=== PATIENT | female | born 1935 | race Caucasian/White ===

== ENCOUNTER → 2016-07-05 | Outpatient (CLI) | payer OTHER, BC | LOC: BMCIMAGING 08:34 | DX: Z12.31 Encounter for screening mammogram for malignant neoplasm of breast (principal) | CPT/HCPCS: G0202 ==

== ENCOUNTER → 2017-02-08 | Outpatient (CLI) | payer OTHER, BC | LOC: FLAB 10:50 | PROVIDERS: ATTEND Internal Medicine Nephrology | DX: I50.22 Chronic systolic (congestive) heart failure (principal) ==

== ENCOUNTER → 2017-02-23 | Outpatient (CLI) | payer OTHER, BC | LOC: BMCIMAGING 11:23 | PROVIDERS: ATTEND Internal Medicine | DX: I50.9 Heart failure, unspecified (principal); J90 Pleural effusion, not elsewhere classified; R91.8 Other nonspecific abnormal finding of lung field ==

== ENCOUNTER 2017-04-21 10:08 | Inpatient (IN) | payer OTHER, BC ==
[2017-04-21] MEDS ORDERED: ACETAMINOPHEN 325 MG TAB PO PRN (12:17)
[2017-04-21] MEDS ORDERED: ONDANSETRON DISINTEGRATING 4 MG TAB PO PRN (12:17)
[2017-04-21] MEDS ORDERED: ONDANSETRON 4 MG/2 ML VIAL IVP PRN (12:17)
[2017-04-21] MEDS ORDERED: D50W 25 GM/50 ML SYR IVP PRN (12:54)
[2017-04-21 13:36] LABS: PLATELET COUNT 151 10^3/uL (150-400)
--- NOTE | 2017-04-21 13:39 | GHP ---
[f rep st] HISTORY AND PHYSICAL DATE OF ADMISSION: 04/21/2017 CHIEF COMPLAINT: Weakness. HISTORY OF PRESENT ILLNESS: This is a 81-year-old female who was sent in from Dr. Gerardo's office for weakness and anemia. She notes that over the past few months, she has felt like a "noodle". She feels as though her knees are going to buckle. She just has overall very little energy. She was noted to be anemic in Dr. Marques's office, with a hemoglobin of 7.5. She has no clear source of blood loss, including no hemateme sis, no hematuria, no hematochezia. She does have black tarry stools, though she is on iron. She no gloria that these have been ongoing for the last few months. She has no chest pain with exertion. She does get short of breath when she ambulates. She had a stress test on March 06, 2017, which showe d new inferior ischemia. She has been evaluated by Dr. Peguero who feels as though she is a poor cath c andidate given her renal disease. PAST MEDICAL/SURGICAL HISTORY: 1. Congestive heart failure, diastolic. 2. Coronary artery disease, with a positive recent nuclear stress test. 3. Aortic valve replacement, with INR goal of 2-3. 4. Type 2 diabetes. 5. Chronic kidney disease, stage 4. 6. Anemia. 7. Hypertension. 8. Hyperlipidemia. MEDICATIONS: Please see medication reconciliation. ALLERGIES: Codeine. SOCIAL HISTORY: She is followed by Dr. Gerardo. FAMILY HISTORY: Reviewed and noncontributory. REVIEW OF SYSTEMS: 10-point review of systems is conducted and is negative except per HPI. PHYSICAL EXAM: VITAL SIGNS: Blood pressure 163/81, heart rate 67, respiration rate 12, saturating 1 00% on 2 L. Temperature 36.6. GENERAL: The patient is a very pleasant female who is resting comfor tably, in no acute distress. She is mildly pale. HEENT: Shows her to be normocephalic, atraumatic. CARDIOVASCULAR: Regular rate and rhythm. She has a 2/6 systolic murmur. She has an S2 click. PU LMONARY: Lungs clear to auscultation bilaterally. ABDOMEN: Soft, nontender, nondistended. SKIN: Shows no rash. : Shows no Salvador. NEURO: Shows her to be alert and oriented x3. She is moving a ll extremities. She has a nonfocal neurologic exam. PSYCHIATRIC: Shows a normal mood and affect. LABS: Labs from yesterday are reviewed. Hemoglobin is 7.5, platelets are 146, BUN is 101, creatinin e is 2.5. DATA: 1. I discussed this with Dr. Russ, he will consult. 2. I personally reviewed and interpreted her chest x-ray from February 23, it showed worsening pulmo nary edema, with bilateral pleural effusions. IMPRESSION AND PLAN: 1. Anemia: May be slow gastrointestinal loss, also consider due to chronic kidney disease. Given h er heart disease, will transfuse her. I have discussed this with Dr. Russ, who will perform upper and lower endoscopy. Will await to see what her INR is to help decide on the timing. Will consider renal consult based on these findings to consider erythropoietin. 2. Weakness: May be due to above. Also consider due to coronary artery disease. TSH was relativel y normal yesterday. 3. Coronary artery disease: She had an abnormal nuclear stress test which showed new inferior wall ischemia. For now, will check a troponin, a BNP as well as echocardiogram. I have placed a call to Cardiology but have not heard back yet, I will ask them to consult. She is on warfarin and carvedilo l. 4. Chronic kidney disease: Again, labs pending. Her creatinine from yesterday was 2.5. I note artemio t her BUN seems to be more elevated than I would expect. This creatinine is approximately her baseli ne. Her electrolytes are normal. Will consider renal consult on this admission. 5. Aortic valve replacement: Goal INR is 2-3. Will check her INR today, hold her warfarin for now, if she will be subtherapeutic for a prolonged period, will bridge her. 6. Diabetes mellitus type 2: I have continued her home insulin as well as sliding scale. 7. Hypertension: Will continue her antihypertensives. 8. Code status: She would like to be do not resuscitate. 9. Deep vein thrombosis prophylaxis: She is on warfarin. /[id number]/MODL
[2017-04-21 13:45] LABS: INR 2.17 (0.83-1.16); PROTIME(PATIENT) 24.2 SEC (12.0-15.0)
--- NOTE | 2017-04-21 13:47 | PDCONSULT ---
Roll Tester Note: Renal Consult Note CC: Shortness of breath HPI: The patient is a 81 y/o F with a known h/o CHF, CKD, and CAD who presents with worsening exercise tolerance. She has a known large reversible defect on a thalium scan per her primary connection worker, Wali Gordon, and a baseline Cr of 2.5mg/dL. She presents with anemia to 7.5g/dL and often has exacerbation of her heart failure. She has been seen by Dr. Peguero at [facility] and Dr. Gresham at . She states today, that she is feeling well. She denies recent bleeding but isn't able to "get around much." Also had a GI work-up 2-3 years ago for possible AVM , however, not found. Daughter present at bedside. PMH: CHF, CAD, Anemia, CKD StageIV, AVR on coumadin, HTN, HL Family Hx: Non-contributory Social Hx: Non-smoker, rare ETOH use Medication list: Reviewed Allergies: Codeine ROS: Negative except for as per HPI. Objective: Temp Pulse Resp BP Pulse Ox 36.6 C 67 12 163/81 H 100 04/21/17 11:21 04/21/17 11:21 04/21/17 11:21 04/21/17 11:21 04/21/17 11:21 O2 (L/minute) 2 Physical Exam: Gen: A+Ox3, NAD HEENT: EOMI, dry MM Neck: No JVD noted CV: RRR, aortic murmur RESP: CTA b/l ABD: Soft, NT, ND, +BS EXT: Trace edema SKIN: No rashes PSYCH: Cooperative, normal affect, did not observe gait Neuro: Non-focal Labs: WBC 7.05 10^3/uL (3.80-9.50) 04/21/17 13:22 RBC 2.26 10^6/uL (4.18-5.33) L 04/21/17 13:22 Hgb 7.7 g/dL (12.6-16.3) L 04/21/17 13:22 Hct 23.4 % (38.0-47.0) L 04/21/17 13:22 MCV 103.5 fL (81.5-99.8) H 04/21/17 13:22 MCH 34.1 pg (27.9-34.1) 04/21/17 13:22 MCHC 32.9 g/dL (32.4-36.7) 04/21/17 13:22 RDW 13.2 % (11.5-15.2) 04/21/17 13:22 Plt Count 151 10^3/uL (150-400) 04/21/17 13:22 MPV 9.9 fL (8.7-11.7) 04/21/17 13:22 Neut % (Auto) 72.1 % (39.3-74.2) 04/21/17 13:22 Lymph % (Auto) 8.8 % (15.0-45.0) L 04/21/17 13:22 Shannon % (Auto) 7.5 % (4.5-13.0) 04/21/17 13:22 Eos % (Auto) 10.8 % (0.6-7.6) H 04/21/17 13:22 Baso % (Auto) 0.4 % (0.3-1.7) 04/21/17 13:22 Nucleat RBC Rel Count 0.0 % (0.0-0.2) 04/21/17 13:22 Absolute Neuts (auto) 5.08 10^3/uL (1.70-6.50) 04/21/17 13:22 Absolute Lymphs (auto) 0.62 10^3/uL (1.00-3.00) L 04/21/17 13:22 Absolute Monos (auto) 0.53 10^3/uL (0.30-0.80) 04/21/17 13:22 Absolute Eos (auto) 0.76 10^3/uL (0.03-0.40) H 04/21/17 13:22 Absolute Basos (auto) 0.03 10^3/uL (0.02-0.10) 04/21/17 13:22 Absolute Nucleated RBC 0.00 10^3/uL (0-0.01) 04/21/17 13:22 Immature Gran % 0.4 % (0.0-1.1) 04/21/17 13:22 Immature Gran # 0.03 10^3/uL (0.00-0.10) 04/21/17 13:22 PT 24.2 SEC (12.0-15.0) H 04/21/17 13:22 INR 2.17 (0.83-1.16) H 04/21/17 13:22 Crossmatch IS Only See Detail 04/21/17 13:22 Imaging: No new imaging results A/P: The patient is a 81 y/o F with a complex PMH who presents with anemia on coumadin for a h/o aortic valve replacement with decreased exercise tolerance. Her baseline Cr is 2.5mg/dL, new labs pending. Recommend continuing home medications given stable to high BP. Plan for colonoscopy on Monday given elevated INR>2.0. May have some degree of anemia 2/2 to CKD, however, macrocytic. Will continue to follow along. Please contact if any questions. Luis Pena, [facility]
[2017-04-21] MEDS ORDERED: ALTEPLASE 2 MG VIAL IVP PRN (14:03)
--- NOTE | 2017-04-21 14:07 | PDMN ---
Medical Necessity Medical necessity: est los>2mn for anemia w/h&h 7.7/23.4, w/possible slow GI loss vs CKD, and weakness; admit for transfusion, upper and lower endoscopies, w/timing r/t INR; comorbid CAD, hx AVR on AC, DM, CKD, and HTN; per order and H& P 04/21/17
--- NOTE | 2017-04-21 14:39 | CPEKG ---
Heart Rate: 69 RR Interval: 870 P-R Interval: 192 QRSD Interval: 156 QT Interval: 476 QTC Interval: 510 P Corona: 26 QRS Corona: -42 T Wave Corona: 121 EKG Severity - ABNORMAL ECG - EKG Impression: SINUS RHYTHM EKG Impression: LEFT BUNDLE BRANCH BLOCK EKG Impression: COMPARED WITH 12/13/2015, 1ST DEGREE AV BLOCK NOW PRESENT Electronically Signed By: Elizabeth Linda 21-Apr-2017 18:16:16
--- NOTE | 2017-04-21 16:58 | ECHO ---
[email or web address] [address] [address] Main: [phone] Fax: [email or web address] Echocardiogram Name: LILIANA BERNAL MR#: [id number] Study Date: 04/21/2017 Study Time: 01:58 PM Date of : 1935 Age: 81 year(s) Height: 160 cm (63 in.) Weight: 60.78 kg (134 lb.) BSA: 1.63 m2 Gender: Female Examination: Echo Indication: Anemia, Weakness, mechanical AO Image Quality: Contrast: Requested by: Sabas Roldan BP: 163 mmHg/81 mmHg Heart Rate: Rhythm: Normal sinus rhythm Indication: Anemia, Weakness, mechanical AO Procedure Staff Student Assistant: Ruddy Parks [facility] Reading Physician: Elizabeth Linda Requesting Provider: Conclusions: Normal size left ventricle. Mild concentric LV hypertrophy. Normal global systolic LV function. EF is 64 %. No regional wall motion abnormality. Normal size right ventricle. Normal RV function. The left atrium is mildly to moderately dilated. The right atrium is mildly dilated. Moderate mitral valve leaflet calcification is present. Moderate mitral valve regurgitation is present. Moderate MAC. There is thickened mitral leaflets the posterior MV leaflet has reduced mobility, There is mild to moderate stenosis with a MV mean of 9 mmHg. The aortic valve is a mechanical prosthesis.. S/P AVR approximately 15 yrs ago. The AO mean PG is 15 mmHg and a Max PG of 25 mmHg. There is mild AR. The pulmonary artery pressure is severely increased. Compared with 02/13/2015 there has been an increase in mitral valve stenosis. Mechanical aortic valve gradients are similar. Estimated PASP is 72 mmHg Measurements: Chambers Valvular Assessment AV/MV Valvular Assessment TV/PV Normal Normal Normal Name Value Range Name Value Range Name Value Range Ao Minnie (MM): 1.8 cm (2.2 cm-3.7 AV Vmax: 2.58 m/s (1 m/s-1.7 TR Vmax: 4.09 mm/s ( - ) cm) m/s) TR PGmax: 67 mmHg ( - ) IVSd (2D): 1.1 cm (0.6 cm-1.1 AV maxP mmHg ( - ) syst. PAP: 72 mmHg ( - ) cm) AV meanP mmHg ( - ) PV Vmax: 1.22 m/s (0.6 m/s-0.9 LVDd (2D): 4.6 cm (3.9 cm-5.3 ANGELA (VTI): 1.3 cm ( - ) m/s) cm) Patient: LILIANA BERNAL Study Date: 04/21/2017 Page 1 of 2 01:58 PM LVDs (2D): 3.0 cm (2.1 cm-4 AR (PHT): 531 ms ( - ) PV PGmax: 6 mmHg ( - ) cm) MV E Vmax: 2.24 m/s ( - ) LVPWd (2D): 1.3 cm ( - ) MV A Vmax: 1.38 m/s ( - ) LVOTd 1.9 cm 1.9 cm mm MV E/A: 1.62 ( - ) LVEF (2D): 64 (>=54 %) MV meanP mmHg ( - ) MV PHT: 0.096 s ( - ) MVA (Vmax): 1.1 m/s ( - ) MVA (PHT): 2.3 s ( - ) Continued Measurements: Chambers Valvular Assessment AV/MV Valvular Assessment TV/PV Name Value Name Value Name Value LADs Lon.5 cm MV Annulus: 3.2 cm CVP (est.): 5 mmHg LA Area: 19.8 cm2 MV DecTime: 324 m/s MV VTI: 72.40 cm MR ERO: 0.330 cm2 MR PISA radius: 10 mm MR Reg. Volume: 72 ml MR Reg. Fraction: 12 % AR Vmax: 3.62 cm/s AR VTI: 146.0 cm Findings: Left Ventricle: Normal size left ventricle. Mild concentric LV hypertrophy. Normal global systolic LV function. EF is 64 %. No regional wall motion abnormality. Right Ventricle: Normal size right ventricle. Normal RV function. Left Atrium: The left atrium is mildly to moderately dilated. Right Atrium: The right atrium is mildly dilated. Mitral Valve: Moderate mitral valve leaflet calcification is present. Moderate mitral valve regurgitation is present. Moderate MAC. There is thickened mitral leaflets the posterior MV leaflet has reduced mobility, There is mild to moderate stenosis with a MV mean of 9 mmHg. Aortic Valve: The aortic valve is a mechanical prosthesis.. S/P AVR approximately 15 yrs ago. The AO mean PG is 15 mmHg and a Max PG of 25 mmHg. There is mild AR. Tricuspid Valve: Moderate tricuspid regurgitation is present. The pulmonary artery pressure is severely increased. Pulmonic Valve: The pulmonic valve is normal in appearance and function. Aorta: The aorta is normal. Pericardium: No pericardial effusion. (No Signature Object) Patient: LILIANA BERNAL Study Date: 04/21/2017 Page 2 of 2 01:58 PM [id number]
[2017-04-21] MEDS: INSULIN LISPRO 100 UNIT/ML SC SCH (18:11)
[2017-04-21] MEDS ORDERED: PEG 3350/NA SULF,BICARB,CL/KCL (GAVILYTE-G) 4000 ML BTL PO ONE (19:09)
--- NOTE | 2017-04-21 19:13 | SOAPPROG ---
MIKAYLA Progress Note Assessment/Plan: Assessment/Plan: Will begin prep, and proceed with EGD/Colon tomorrow late afternoon (o.k. to do on coumadin, as still able to do biopsies, coagulation, etc. with elevated INR, and we're not doing this as a screening study to remove polyps, etc., in this 81 y.o.). - please see orders - hold iron for prep 04/21/17 19:11 Objective: Vital Signs Temp Pulse Resp BP Pulse Ox 36.7 C 73 16 169/70 H 96 04/21/17 15:48 04/21/17 15:48 04/21/17 15:48 04/21/17 15:48 04/21/17 15:48 Laboratory Results 04/21/17 13:22 04/21/17 13:22 04/20/17 04/21/17 04/22/17 05:59 05:59 05:59 Intake Total 400 Balance 400 PT 24.2 SEC (12.0-15.0) H 04/21/17 13:22 INR 2.17 (0.83-1.16) H 04/21/17 13:22 ICD10 Worksheet Patient Problems: Problems Problem Status Onset CAD - Coronary arteriosclerosis Active Chronic kidney disease stage 4 Active Hyperlipidemia Active Abrasion of knee, right Acute Acute exacerbation of congestive heart failure Acute Acute on chronic renal insufficiency Acute CHF - Diastolic heart failure Acute Chronic Disease Management/Transitional Care Program Acute Diabetes mellitus type 2 Acute Displaced fracture of right femoral neck Acute Iron deficiency anemia Acute Mechanical prosthetic aortic valve replacement Acute
[2017-04-21] MEDS: SODIUM BICARBONATE 650 MG TAB PO SCH (20:45)
[2017-04-21] MEDS: CARVEDILOL 6.25 MG TAB PO SCH (20:45)
[2017-04-21] MEDS: LISINOPRIL 5 MG TAB PO SCH (20:46)
[2017-04-21] MEDS ORDERED: FERROUS SULFATE 325 MG TAB PO SCH (21:00)
--- NOTE | 2017-04-22 06:13 | GCON ---
[f rep st] CONSULTATION REQUESTING PHYSICIAN: Dr. Sabas Roldan. REASON FOR CONSULTATION: Anemia. CHIEF COMPLAINT: Fatigue. Briefly, Ms. Coughlin is a pleasant 81-year-old female with a complicated past medical history. She has underlying history of aortic valve replacement for which she is on chronic anticoagulation. She repo rts over the last several months, she has noticed increasing fatigue, dyspnea on exertion, and weakne ss. She had been noticed to be anemic with a gradual decrease in her hemoglobin and hematocrit overal l. She reports no black tarry stools. She denies hematemesis. She reports no bloody stool. Of note, approximately 2 or 3 years ago, she underwent a workup for an acute GI bleed. At that time, she underwent upper and lower endoscopy. She ultimately had capsule endoscopy, which revealed a bleed ing source in her small bowel. She describes having been evaluated at the [facility] with enteroscopy, but no bleeding lesion was discovered. She underwent no particular therapy a t that time. She has been on chronic iron replacement since then and been doing well until recently. She reports no nausea or vomiting. She has stable appetite. She reports no weight loss or weight gain . PAST MEDICAL HISTORY: Heart failure, coronary disease, aortic valve replacement, type 2 diabetes, ch ronic kidney disease, anemia, hypertension, and elevated lipids. MEDICATIONS: Outpatient medications: Lisinopril, vitamin D, Tylenol, Norvasc, Coreg, calcitriol, Lip itor, Lasix, iron, insulin, Coumadin. Her current medications include Tylenol, allopurinol, Norvasc, Lipitor, calcitriol, Coreg, iron, Lasi x, insulin, Zestril, Zofran, and Coumadin. ALLERGIES: Codeine. SOCIAL HISTORY: She does not smoke. She drinks rare alcohol. She does not use drugs. FAMILY HISTORY: Negative for colon cancer or colon polyps. REVIEW OF SYSTEMS: A complete 10-system review was undertaken with the patient and is negative excep t for those details described in the History of Present Illness. PHYSICAL EXAM: GENERAL: This is a well-developed female in no apparent distress. HEENT: Pupils are e qual, round, and reactive to light and accommodation. Her sclerae are anicteric. Her conjunctiva are pale. HEART: Regular with a 2/6 systolic murmur. ABDOMEN: Soft, nontender, with normoactive bowel manoj nds. EXTREMITIES: Free of cyanosis, clubbing, and edema. NEURO: Grossly nonfocal. PSYCH: Stable mood and affect. LUNGS: Good respiratory effort with clear breath sounds bilaterally. LABORATORY DATA: White count of 7.5, hemoglobin of 7.7, hematocrit 23.4. INR of 2.17. Basic metaboli c panel is pending. Prior baseline hemoglobin has been in the low to mid . IMPRESSION/RECOMMENDATIONS: Ms. Coughlin has had symptomatic anemia. This appears to be a slowly progr essive process. She has not had any evidence of acute gastrointestinal bleeding. The differential megan gnosis is broad. It could include obscure upper or lower or small bowel sources of bleeding. It is fe asible that her current gradual losses are from the same etiology as her acute losses were a few year s ago. At this time, I recommend she undergo additional workup. She is willing to proceed with upper and low er endoscopy. She may ultimately need repeat capsule endoscopy as well. Meanwhile, she should remain hospitalized with supportive care. Iron replacement and even packed red cells may be indicated. Prior to proceeding with upper and lower endoscopy, I recommend that she be off her anticoagulant. Sh ould we find a potentially bleeding lesion that would require endoscopic therapy, therapy yield will be higher if her INR is less than 1.6. Given her cardiopulmonary disease and anticoagulation, as well as advanced age, I recommend we use anesthesia for sedation support for her upper and lower endoscop y. /[id number]/MODL
[2017-04-22] MEDS: ALLOPURINOL 100 MG TAB PO SCH (08:20)
[2017-04-22] MEDS: ATORVASTATIN CALCIUM 40 MG TAB PO SCH (08:20)
[2017-04-22] MEDS: CYANO/VITAMIN B12 100 MCG TAB PO SCH (08:21)
[2017-04-22] MEDS: CARVEDILOL 6.25 MG TAB PO SCH ×2 (08:21→21:26)
[2017-04-22] MEDS: SODIUM BICARBONATE 650 MG TAB PO SCH ×2 (08:21→21:27)
[2017-04-22] MEDS: CHOLECALCIFEROL VIT D3 1,000 UNITS TAB PO SCH (08:21)
[2017-04-22] MEDS: FUROSEMIDE 80 MG TAB PO SCH (08:21)
[2017-04-22] MEDS ORDERED: WARFARIN SODIUM 3 MG TAB PO SCH (09:00)
[2017-04-22] MEDS ORDERED: 1/2 NS 1,000 ML IV SCH (09:00)
[2017-04-22] MEDS: INSULIN GLARGINE 100 UNITS/ML UNIT SC SCH (09:43)
[2017-04-22] MEDS: INSULIN LISPRO 100 UNIT/ML SC SCH ×3 (09:43→18:22)
--- NOTE | 2017-04-22 11:59 | PDCARPN ---
Cardiology Progress Note Chief Complaint: Fatigue, weakness Assessment/Plan: Assessment: 1. Fatigue 2. Anemia of chronic renal disease 3. CAD sp CABG with nuclear stress test demonstrating inferior lateral infarction with moderate magalys-infarct ischemia with LVEF 66%. 4. Chronic Diastolic CHF 5. Moderate Mitral Stenosis and Moderate MR 6. Sp Mechanical AVR ([facility]) 7. Hypertension secondary to renal disease Plan: -no indication for Left Heart Catheterization (recommend medical management of CAD) -Agree with GI evaluation -Continue current cardiac medications -will follow 04/22/17 12:00 Subjective: 81 year old female well known to my office with history of CAD sp CABG, Mechanical [facility] AVR, moderate mitral stenosis and MR, chronic diastolic CHF , Chronic, Stage IV renal disease followed by Dr. Gordon and chronic anemia admitted on Apr 21, 2017 with increasing fatigue. I had last seen her in the office on March 08, 2017 with identical complaints of fatigue which she states has gradually worsened over the last 5-6 weeks prompting admission yesterday. Of note, Hgb has dropped from 9.3 to 7.7. BNP of 5750; previous 2 readings in my office of 3780 and 5440. Her weight is essentially unchanged weighing 60.93 Kg on Mar 08, 2017 and 60.71 Kg yesterday. Cr is stable at 2.4. INR therapeutic at 2.17 Of note, Lexiscan nuclear stress test in February 2017 demonstrated a large, severe intensity fixed defect involving the inferior and inferior lateral wall with moderate magalys-infarct ischemia with LVEF 66%. With her hx of chronic, stage IV renal insufficiency coupled with significant anemia and multiple other comorbidities that may be contributing to her fatigue, I did not feel she was an appropriate candidate for left heart cath. Cecilia denies complaints of chest pain, sob, gomez, pnd, orthopnea or LE edema. No complaints of palpitations, dizziness, lightheadedness or syncope. Objective: Vital Signs (8 Hrs) Temp Pulse Resp BP Pulse Ox 04/22/17 11:00 36.7 C 60 20 166/83 H 100 04/22/17 08:35 36.9 C 64 20 184/80 H 97 04/22/17 03:50 36.8 C 64 16 169/70 H 98 Intake/Output (24 Hrs) 04/21/17 04/22/17 04/23/17 05:59 05:59 05:59 Intake Total 1000 Balance 1000 Intake: Oral (ml) 400 Packed Red Blood Cells ( 600 ml) Other: Weight 60.781 kg Output Comment Bedside Commode Golytely Number of Voids Toilet 2 1 Number of Stools Bedside Commode 1 Result Diagrams: 04/21/17 13:22 04/21/17 13:22 Cardiac Labs: Cardiac Lab Results (72 Hrs) 04/21/17 13:22 Troponin I 0.015 - Physical Exam Constitutional: WDWN Ears, Nose, Mouth, Throat: moist mucous membranes Cardiovascular: regular rate and rhythm, systolic murmur Peripheral Pulses: 2+: carotid (R), carotid (L) Respiratory: clear to auscultate bilat Neurologic: AAOx3, CN II-XII grossly intact Psychiatric: cooperative, interactive, not anxious ICD10 Worksheet Patient Problems: Problems Problem Status Onset CAD - Coronary arteriosclerosis Active Chronic kidney disease stage 4 Active Hyperlipidemia Active Abrasion of knee, right Acute Acute exacerbation of congestive heart failure Acute Acute on chronic renal insufficiency Acute CHF - Diastolic heart failure Acute Chronic Disease Management/Transitional Care Program Acute Diabetes mellitus type 2 Acute Displaced fracture of right femoral neck Acute Iron deficiency anemia Acute Mechanical prosthetic aortic valve replacement Acute
[2017-04-22] MEDS: FUROSEMIDE 40 MG TAB PO SCH (12:56)
--- NOTE | 2017-04-22 14:17 | HOSPPROG ---
Hospitalist Progress Note Assessment/Plan: # weakness - anemia, CAD, etiology unclear; will assess after transfusion # anemia - will proceed with GI eval today; if neg, consider heme eval given her macrocytosis # CAD - positive nuc stress - no cath given renal disease; on medical tx - cards following # CKD - at baseline, renal following # mechanical AVR - cont warfarin # htn - lisino, norvasc, coreg # DM - cont glargine 7 Subjective: having many BMs; no CP Objective: Vital Signs Temp Pulse Resp BP Pulse Ox 36.7 C 60 20 166/83 H 100 04/22/17 11:00 04/22/17 11:00 04/22/17 11:00 04/22/17 11:00 04/22/17 11:00 Laboratory Results 04/21/17 13:22 04/21/17 13:22 04/21/17 04/22/17 04/23/17 05:59 05:59 05:59 Intake Total 1000 Balance 1000 PT 24.2 SEC (12.0-15.0) H 04/21/17 13:22 INR 2.17 (0.83-1.16) H 04/21/17 13:[address] Myles - colonoscopy and EGD today CXR personally reviewed - Physical Exam Constitutional: no apparent distress Eyes: anicteric sclera Ears, Nose, Mouth, Throat: hearing normal Cardiovascular: No edema Respiratory: no respiratory distress Gastrointestinal: No distension Genitourinary: No mullins in urethra Skin: warm Neurologic: AAOx3 Psychiatric: not anxious ICD10 Worksheet Patient Problems: Problems Problem Status Onset Chronic kidney disease stage 4 Active CAD - Coronary arteriosclerosis Active Hyperlipidemia Active Mechanical prosthetic aortic valve replacement Acute Diabetes mellitus type 2 Acute Iron deficiency anemia Acute CHF - Diastolic heart failure Acute Chronic Disease Management/Transitional Care Program Acute Acute exacerbation of congestive heart failure Acute Acute on chronic renal insufficiency Acute Abrasion of knee, right Acute Displaced fracture of right femoral neck Acute
[2017-04-22] MEDS ORDERED: MIDAZOLAM 2 MG/2 ML VIAL ONE (15:21)
[2017-04-22] MEDS ORDERED: fentaNYL 100 MCG/2 ML INJ ONE (15:22)
--- NOTE | 2017-04-22 16:12 | SOAPPROG ---
MIKAYLA Progress Note Assessment/Plan: Assessment: 81 y/o F with a complex PMH who presents with anemia on coumadin for a h/o aortic valve replacement with decreased exercise tolerance. H 1)CKD -Cr remains at baseline mid 2 range with proteinuria -IV contrast would be high risk for pt 2)Worsening anemia -getting PRBCs -GI eval- getting colonscopy now -may have some contribution from CKD and may start Epo/iron -b12 level ok 3)Known reversible defect on stress -cards following- medical management planned for now 4)s/p AVR Sheela Churchill MD [facility] pager [phone] 04/22/17 16:58 Subjective: Pt currently at colonscopy I discussed with RN- no events. Objective: Vital Signs Temp Pulse Resp BP Pulse Ox 36.6 C 67 16 192/82 H 99 04/22/17 16:00 04/22/17 16:00 04/22/17 16:00 04/22/17 16:00 04/22/17 16:00 Laboratory Results 04/21/17 13:22 04/21/17 13:22 04/21/17 04/22/17 04/23/17 05:59 05:59 05:59 Intake Total 1000 Balance 1000 PT 24.2 SEC (12.0-15.0) H 04/21/17 13:22 INR 2.17 (0.83-1.16) H 04/21/17 13:22 ICD10 Worksheet Patient Problems: Problems Problem Status Onset CAD - Coronary arteriosclerosis Active Chronic kidney disease stage 4 Active Hyperlipidemia Active Abrasion of knee, right Acute Acute exacerbation of congestive heart failure Acute Acute on chronic renal insufficiency Acute CHF - Diastolic heart failure Acute Chronic Disease Management/Transitional Care Program Acute Diabetes mellitus type 2 Acute Displaced fracture of right femoral neck Acute Iron deficiency anemia Acute Mechanical prosthetic aortic valve replacement Acute
--- NOTE | 2017-04-22 17:28 | GIREPORT ---
[facility] Surgical Services - Endoscopy Department Patient Name: Cecilia Coughlin Procedure Date: 04/22/2017 3:28 PM Patient Type: Inpatient Attending MD/ ER Physician: Parth Myles MD Procedure: Upper GI endoscopy Indications: Anemia, with a high MCV. On coumadin. Providers: Parth Myles MD Referring MD: Aarti Gerardo MD; Naresh Peguero MD; [facility] Hospitalist service Medicines: Fentanyl 100 micrograms IV, Midazolam 5 mg IV Complications: No immediate complications. Description of Procedure: After obtaining informed consent, the endoscope was passed under direct vision. Throughout the procedure, the patient's blood pressure, pulse, and oxygen saturations were monitored continuously. The Endoscope was intro duced through the mouth, and advanced to the second part of duodenum. Findings: The esophagus was normal. The stomach was normal. The examined duodenum and ampulla were normal. Biopsies were taken with a cold forceps for histology (in case of a selective iron-deficiency spru e (doubt). Estimated Blood Loss: Estimated blood loss: none. Post Op Diagnosis: - No source for anemia found. Recommendation: - Await pathology results, but suspect will be normal. - Else, please see colonoscopy report. - Thank you for allowing me to help in the management of this patient. Shameka Alba MD Parth Myles MD 04/22/2017 5:28:15 PM This report has been signed electronicallyPeter MD Shameka Number of Addenda: 0 Note Initiated On: 04/22/2017 3:28 PM [email or web address]
--- NOTE | 2017-04-22 17:38 | GIREPORT ---
[facility] Surgical Services - Endoscopy Department Patient Name: Cecilia Coughlin Procedure Date: 04/22/2017 4:37 PM Patient Type: Inpatient Attending MD/ ER Physician: Parth Myles MD Procedure: Colonoscopy Indications: Anemia, with a high MCV. Negative EGD. Providers: Parth Myles MD Referring MD: Aarti Gerardo MD; Naresh Peguero MD; [facility] Hospitalist service Medicines: See the other procedure note for documentation of the administered medications Complications: No immediate complications. Description of Procedure: After obtaining informed consent, the scope was passed under direct vis ion. Throughout the procedure, the patient's blood pressure, pulse, and oxyg en saturations were monitored continuously. The Colonoscope was introduced through the anus and advanced to the cecum, identified by appendiceal orifice and ileocecal valve. The appendiceal orifice was photographed. The quality of the bowel preparation was fair. Findings: Several cecal polyps, benign in appearance, left alone (pt. 81, with multiple medical problems, with high INR). 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 Coagula tion for hemostasis using argon plasma was successful. Multiple diverticula were found from 15 to 60 cm proximal to the anus. Estimated Blood Loss: Estimated blood loss: none. Post Op Diagnosis: - Small AVM, as above, with some oozing; ablated. Overall, suspect the above contributes to her anemia, especially with h er coumadin use. However, suspect anemia is multifactorial as well, with contributions from chronic renal disease, other potential bone marrow processes, etc. Recommendation: - feed - buffcap I.V. - recommend restarting chronic iron replacement therapy - recommend keeping INR low-therapeutic - for future symptomatic anemia, first-line therapy should be transfusi on of blood prn. We could repeat colonoscopy for retreatment of angioectasia (they tend to recurr, especially on coumadin), but would reserve that only fo r significant hemorrhage. Does not need routine colonoscopy, due to age, comorbid illnesses, etc. I will sign off. I will f/u on duodenal bxs, but suspect will be normal . Else, please call if we can be of further help [phone]). Thank you for allowing me to help in the management of this patient. Shameka Alba MD Parth Myles MD 04/22/2017 5:38:29 PM This report has been signed electronicallyPeter MD Shameka Number of Addenda: 0 Note Initiated On: 04/22/2017 4:37 PM Total Procedure Duration Time 0 hours 25 minutes 10 seconds [email or web address]
[2017-04-22] MEDS: LISINOPRIL 5 MG TAB PO SCH (21:27)
[2017-04-23 03:12] LABS: PLATELET COUNT 134 10^3/uL (150-400)
[2017-04-23 03:16] LABS: INR 1.88 (0.83-1.16); PROTIME(PATIENT) 21.7 SEC (12.0-15.0)
[2017-04-23 07:24] VITALS: RESP 18; TEMP 98.6
[2017-04-23] MEDS: INSULIN LISPRO 100 UNIT/ML SC SCH ×2 (08:18→13:52)
[2017-04-23] MEDS: SODIUM BICARBONATE 650 MG TAB PO SCH (08:53)
[2017-04-23] MEDS: INSULIN GLARGINE 100 UNITS/ML UNIT SC SCH (08:53)
[2017-04-23] MEDS: CHOLECALCIFEROL VIT D3 1,000 UNITS TAB PO SCH (08:53)
[2017-04-23] MEDS: ATORVASTATIN CALCIUM 40 MG TAB PO SCH (08:54)
[2017-04-23] MEDS: ALLOPURINOL 100 MG TAB PO SCH (08:54)
[2017-04-23] MEDS: CARVEDILOL 6.25 MG TAB PO SCH (08:54)
[2017-04-23] MEDS: FUROSEMIDE 80 MG TAB PO SCH (08:54)
[2017-04-23] MEDS: CYANO/VITAMIN B12 100 MCG TAB PO SCH (08:54)
--- NOTE | 2017-04-23 10:38 | SOAPPROG ---
SOAP Progress Note Assessment/Plan: Assessment: 81 y/o F with a complex PMH who presents with anemia on coumadin for a h/o aortic valve replacement with decreased exercise tolerance. Colonscopy with AVM: 1)CKD4 -Cr remains at baseline mid 2 range with proteinuria -IV contrast would be high risk for pt 2)Worsening anemia -s/p PRBCs -GI eval- colonscopy showed AVM, s/p cautery -restart po iron -may have some contribution from CKD and can start Epo as outpt- we will arrange -b12 level ok 3)Known reversible defect on stress -cards following- medical management planned for now 4)s/p AVR 5)mild hypernatremia -encourage more fluids now that taking po I discussed with RN Sheela Churchill MD [facility] pager [phone] 04/23/17 10:38 Subjective: Feels much better, ate breakfast. No cp or sob. Hasn't tried to walk around much yet- RN to walk with her this morning. Discussed colonscopy results. Objective: Vital Signs Temp Pulse Resp BP Pulse Ox 37.0 C 85 18 166/54 H 97 04/23/17 07:23 04/23/17 07:23 04/23/17 07:23 04/23/17 07:23 04/23/17 07:23 Laboratory Results 04/23/17 02:45 04/23/17 02:45 04/22/17 04/23/17 04/24/17 05:59 05:59 05:59 Intake Total 1000 2930 Balance 1000 2930 PT 21.7 SEC (12.0-15.0) H 04/23/17 02:45 INR 1.88 (0.83-1.16) H 04/23/17 02:45 Physical Exam - Physical Exam General Appearance: alert, no apparent distress EENT: other (mmm) Cardiac/Chest: regular rate, rhythm Abdomen: soft Extremities: other (trace ankle edema bilat) Neuro/Psych: alert, oriented x 3 ICD10 Worksheet Patient Problems: Problems Problem Status Onset CAD - Coronary arteriosclerosis Active Chronic kidney disease stage 4 Active Hyperlipidemia Active Abrasion of knee, right Acute Acute exacerbation of congestive heart failure Acute Acute on chronic renal insufficiency Acute CHF - Diastolic heart failure Acute Chronic Disease Management/Transitional Care Program Acute Diabetes mellitus type 2 Acute Displaced fracture of right femoral neck Acute Iron deficiency anemia Acute Mechanical prosthetic aortic valve replacement Acute
--- NOTE | 2017-04-23 10:49 | ASMTCMCOM ---
CM Note CM Note Notes: Pt admitted for anemia. PT/OT recommending HC. Pt recently used [facility]. They were sent referral. Pt will have RN/PT/OT. CM to follow. Date Signed: 04/23/2017 10:48 AM Electronically Signed By:Melania Mathews LCSW
[2017-04-23 11:04] VITALS: BP 164/69; PULSE 61; O2SAT 98
--- NOTE | 2017-04-23 11:33 | PDCARPN ---
Cardiology Progress Note Assessment/Plan: Assessment: 1. Fatigue (has improved with transfusion of PrBC's) 2. Anemia of chronic renal disease 3. CAD sp CABG with nuclear stress test demonstrating inferior lateral infarction with moderate magalys-infarct ischemia with LVEF 66%. 4. Chronic Diastolic CHF 5. Moderate Mitral Stenosis and Moderate MR 6. Sp Mechanical AVR ([facility]) 7. 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 She was transfused PRBC's and Hgb is now 10. Colonoscopy yesterday demonstrated oozing from AVM and was successfully cauterized by Dr. Myles. Reviewed/Discussed With: multidisciplinary team Time Spent With Patient: 15 minutes, Objective: Vital Signs (8 Hrs) Temp Pulse Resp BP Pulse Ox 04/23/17 11:03 37.0 C 61 18 164/69 H 98 04/23/17 07:23 37.0 C 85 18 166/54 H 97 04/23/17 04:00 36.6 C 69 16 165/83 H 96 Intake/Output (24 Hrs) 04/22/17 04/23/17 04/24/17 05:59 05:59 05:59 Intake Total 1000 2930 Balance 1000 2930 Intake: Oral (ml) 400 2400 IV Intake (ml) 400 IV Infused (ml) 130 1/2 Ns 1,000 ml @ 40 mls/ 130 hr IV CONT DIALLO Rx#: [id number] Packed Red Blood Cells ( 600 ml) Other: Weight 60.781 kg 60.1 kg Intake Quantity Yes Sufficient Output Comment Bedside Commode Golytely Number of Voids Bedside Commode 4 Toilet 2 1 Number of Stools Bedside Commode 2 Result Diagrams: 04/23/17 02:45 04/23/17 02:45 Cardiac Labs: Cardiac Lab Results (72 Hrs) 04/21/17 13:22 Troponin I 0.015 - Physical Exam Constitutional: WDWN Ears, Nose, Mouth, Throat: moist mucous membranes Neurologic: AAOx3, CN II-XII grossly intact Psychiatric: cooperative, interactive ICD10 Worksheet Patient Problems: Problems Problem Status Onset CAD - Coronary arteriosclerosis Active Chronic kidney disease stage 4 Active Hyperlipidemia Active Abrasion of knee, right Acute Acute exacerbation of congestive heart failure Acute Acute on chronic renal insufficiency Acute CHF - Diastolic heart failure Acute Chronic Disease Management/Transitional Care Program Acute Diabetes mellitus type 2 Acute Displaced fracture of right femoral neck Acute Iron deficiency anemia Acute Mechanical prosthetic aortic valve replacement Acute
--- NOTE | 2017-04-23 14:43 | PDIAF ---
- Diagnosis Diagnosis: lower GI bleed Code Status: Do Not Resuscitate - Medication Management Discharge Medications: Medications to Continue on Transfer Insulin Glargine [Lantus 100 UNITS/ML (*)] 7 units SC DAILY 04/01/12 [Last Taken 04/21/17] Insulin Lispro [humALOG LISPRO 100 units/ml (*)] 0 - 7 unit SC TIDMEAL 07/12/14 [Last Taken 04/20/17 18:00 4 UNITS] Atorvastatin Calcium [Lipitor 80 mg] 80 mg PO DAILY 02/09/15 [Last Taken ] Ferrous Sulfate [Ferrous Sulf 325 MG (*)] 325 mg PO BID 02/09/15 [Last Taken ] Sodium Bicarbonate [Na Bicarb] 1,300 mg PO DAILY 02/09/15 [Last Taken 04/21/17] Sodium Bicarbonate [Na Bicarb] 650 mg PO HS 02/09/15 [Last Taken 04/20/17] Allopurinol [Allopurinol 100 MG (*)] 100 mg PO DAILY #0 tab 03/12/15 [Last Taken 04/21/17] Furosemide [Lasix 80 MG (*)] 80 mg PO DAILY #0 tab 03/12/15 [Last Taken 04/21/17 ] Furosemide [Lasix 40 MG (*)] 40 mg PO DAILY@12 12/13/15 [Last Taken 04/20/17] Acetaminophen [Tylenol 325mg (*)] 325 - 650 mg PO Q4HRS PRN 04/21/17 [Last Taken 04/21/17 325MG] Calcitriol [Calcitriol (*)] 0.25 mcg PO MO 04/21/17 [Last Taken 04/17/17] Carvedilol [Coreg (*)] 6.25 mg PO HS 04/21/17 [Last Taken 04/20/17] Carvedilol [Coreg (*)] 12.5 mg PO DAILY 04/21/17 [Last Taken 04/21/17] Cholecalciferol Vit D3 [Vitamin D3 (*)] 1,000 units PO DAILY 04/21/17 [Last Taken 04/21/17] Cyanocobalamin [Vitamin B12 (*)] 100 mcg PO DAILY 04/21/17 [Last Taken 04/21/17] Lisinopril [Zestril 5 mg (*)] 5 mg PO HS 04/21/17 [Last Taken 04/20/17] Warfarin Sodium [Coumadin 3MG (*)] 3 mg PO DAILY 04/21/17 [Last Taken 04/21/17] amLODIPine BESYLATE [Norvasc 10 mg (*)] 10 mg PO HS 04/21/17 [Last Taken ] Discharge Medications: Refer to the Discharge Home Medication list for PRN reason. - Orders Services needed: Home Care, Certified Medical Case Worker, Physical Therapy, Occupational Therapy Home Care Face to Face: I certify that this patient was under my care and that I had the required [id number] encounter meeting the encounter requirements on the discharge day. My findings support the fact that the patient is homebound as defined in Home Care Face to Face Continued: CMS Chapter 7 Medicare Benefits Manual 30.1.1 , The condition of the patient is such that there exists a normal inability to leave home and consequently, leaving home would require a considerable and taxing effort. Isolation Type: None Diet Recommendation: no restrictions on diet - Labs/Radiology BMP Date: 04/26/17 (send to Dr Gerardo) CBC w/diff Date: 04/26/17 (send to Dr Gerardo) - Follow Up Care Current Providers and Referrals: Aarti Gerardo MD [Primary Care Provider] -
--- NOTE | 2017-04-23 15:05 | GDS ---
[f rep st] DISCHARGE SUMMARY ALL DIAGNOSES: 1. Symptomatic anemia. 2. Arteriovenous malformation, status post electrocautery. 3. Chronic kidney disease. 4. Coronary artery disease, status post CABG. 5. Generalized malaise. 6. Mechanical aortic valve replacement. 7. Hypertension. 8. Diabetes mellitus. PROCEDURES: Upper and lower endoscopy by Dr. Myles on 04/22/2017, showing an AVM. This was cauterize d. ALL CONSULTATIONS: 1. Cardiology, Dr. Peguero. 2. Renal. 3. GI, Dr. Myles. HOSPITAL COURSE BY PROBLEM: 1. Symptomatic anemia: She was admitted with generalized malaise. She was transfused 2 units of pa cked red blood cells. She feels much better on the day of discharge. The only real intervention artemio t has been taken is her transfusion. I note that she is macrocytotic with an MCV of 103. She underw ent a GI evaluation, which showed an oozing AVM, which was cauterized by Dr. Myles. I think this is l ikely the source of her blood loss, though her macrocytosis does not exactly fit. I recommend follow ing her hemoglobin and hematocrit over the next few months. If it continues to drop would consider H ematology consult given her macrocytosis. 2. Chronic kidney disease: Seen by Renal here. Renal will consider EPO as an outpatient. This nolvia jesús may also help her anemia. 3. Reversible defect on stress test: Seen by Cardiology. Feel that the risks outweigh the benefits of further invasive testing, given her kidney disease. Medical management. BILLING: I spent more than 30 minutes on the day of discharge coordinating care. FOLLOW UP: 1. Dr. Gerardo, her primary care physician. 2. Dr. Gordon, her axle polisher. 3. Dr. Peguero, her case reviewer. /[id number]/MODL
[2017-04-23] MEDS: FUROSEMIDE 40 MG TAB PO SCH (15:14)
[2017-04-24] MEDS ORDERED: CALCITRIOL 0.25 MCG CAP PO SCH (12:51)
== END 2017-04-23 16:55 | disposition home or self-care (01) | DRG 378 ==
LOC: F2W 10:30
PROVIDERS: ADMIT Student in an Organized Health Care Education/Training Program; ATTEND Student in an Organized Health Care Education/Training Program
PROC: 02HV33Z Insertion of Infusion Device into Superior Vena Cava, Percutaneous Approach (ICD-10-PCS; 2017-04-21)
PROC: 30233N1 Transfusion of Nonautologous Red Blood Cells into Peripheral Vein, Percutaneous Approach (ICD-10-PCS; 2017-04-21)
PROC: 0DB98ZX Excision of Duodenum, Via Natural or Artificial Opening Endoscopic, Diagnostic (ICD-10-PCS; principal; 2017-04-22 16:00)
PROC: 0W3P8ZZ Control Bleeding in Gastrointestinal Tract, Via Natural or Artificial Opening Endoscopic (ICD-10-PCS; principal; 2017-04-22 16:00)
DX: K31.811 Angiodysplasia of stomach and duodenum with bleeding (principal); D12.0 Benign neoplasm of cecum; D63.1 Anemia in chronic kidney disease; E87.0 Hyperosmolality and hypernatremia; I50.32 Chronic diastolic (congestive) heart failure; I25.10 Atherosclerotic heart disease of native coronary artery without angina pectoris; E11.22 Type 2 diabetes mellitus with diabetic chronic kidney disease; I12.9 Hypertensive chronic kidney disease with stage 1 through stage 4 chronic kidney disease, or unspecified chronic kidney disease; N18.4 Chronic kidney disease, stage 4 (severe); I05.2 Rheumatic mitral stenosis with insufficiency; Z79.4 Long term (current) use of insulin; Z95.2 Presence of prosthetic heart valve
CPT/HCPCS: 82607-90; 97116-GP; 97161-GP; 97165-GO; C1751; G8978-GP-CJ; G8979-GP-CI; G8987-GO-CK; G8988-GO-CH; J1815; J2250; J2405; J3010; P9016

== ENCOUNTER 2017-10-03 11:11 | Emergency (ER) | payer OTHER, BC ==
--- NOTE | 2017-10-03 11:49 | EDPHY ---
H & P Stated Complaint: episode of AMS/diaphoresis this am after taking insulin without eating Time Seen by Provider: 10/03/17 11:35 HPI/ROS: CHIEF COMPLAINT: Altered mental status HISTORY OF PRESENT ILLNESS: The patient is an 82-year-old female who daughter was called to the long term this morning because she was confused and diaphoretic. Daughter recognized this as being similar to previous episodes of hypoglycemia. She gave her mom some chicken salad in after about 15 min her symptoms seem to resolve. She states that the patient took her insulin this morning without eating breakfast. Mom does have a history of cardiac disease status post CABG and CHF on 4 L of oxygen at baseline. She denies chest pain or shortness of breath today. No recent fevers or infections. No GI symptoms. The patient states she is now back at baseline. REVIEW OF SYSTEMS: Constitutional: denies: chills, fever, recent illness, recent injury EENTM: denies: blurred vision, double vision, nose congestion Respiratory: denies: cough, shortness of breath Cardiac: denies: chest pain, irregular heart rate, lightheadedness, palpitations Gastrointestinal/Abdominal: denies: abdominal pain, diarrhea, nausea, vomiting, blood streaked stools Genitourinary: denies: dysuria, frequency, hematuria, pain Musculoskeletal: denies: joint pain, muscle pain Skin: See HPI Neurological: See HPI Hematologic/Lymphatic: denies: blood clots, easy bleeding, easy bruising Immunologic/allergic: denies: HIV/AIDS, transplant EXAM: GENERAL: Well-appearing, well-nourished and in no acute distress. HEAD: Atraumatic, normocephalic. EYES: Pupils equal round and reactive to light, extraocular movements intact, sclera anicteric, conjunctiva are normal. ENT: TMs normal, nares patent, oropharynx clear without exudates. Moist mucous membranes. NECK: Normal range of motion, supple without lymphadenopathy or JVD. LUNGS: Breath sounds clear to auscultation bilaterally and equal. No wheezes rales or rhonchi. HEART: Regular rate and rhythm without murmurs, rubs or gallops. ABDOMEN: Soft, nontender, normoactive bowel sounds. No guarding, no rebound. No masses appreciated. BACK: No CVA tenderness, no spinal tenderness, step-offs or deformities EXTREMITIES: Normal range of motion, no pitting or edema. No clubbing or cyanosis. NEUROLOGICAL: Cranial nerves II through XII grossly intact. Normal speech, normal gait. 5/5 strength, normal movement in all extremities, normal sensation PSYCH: Normal mood, normal affect. SKIN: Warm, dry, normal turgor, no visible rashes or lesions. Source: Patient Exam Limitations: No limitations - Personal History Current Tetanus/Diphtheria Vaccine: Yes - Medical/Surgical History Hx Asthma: No Hx Chronic Respiratory Disease: Yes Hx Diabetes: Yes Hx Cardiac Disease: Yes Hx Renal Disease: Yes Hx Cirrhosis: No Hx Alcoholism: No Hx HIV/AIDS: No Hx Splenectomy or Spleen Trauma: No Other PMH: CAD & CBG 2000, CHF, AVR, kidney failure, anemia, type 2 diabetes, arthritis - Family History Significant Family History: No pertinent family hx - Social History Smoking Status: Never smoked Alcohol Use: None Constitutional: Initial Vital Signs Temperature (C) 36.9 C 10/03/17 11:17 Heart Rate 53 L 10/03/17 11:17 Respiratory Rate 18 10/03/17 11:17 Blood Pressure 169/89 H 10/03/17 11:17 O2 Sat (%) 92 10/03/17 11:17 O2 Delivery Mode Nasal Cannula O2 (L/minute) 4 Allergies/Adverse Reactions: codeine [Codeine] Allergy (Mild, Verified 10/03/17 11:16) NAUSEA Home Medications: Medication Instructions Recorded Insulin Glargine [Lantus 100 7 units SC DAILY 04/01/12 UNITS/ML (*)] Insulin Lispro [humALOG LISPRO 100 0 - 7 unit SC TIDMEAL 07/12/14 units/ml (*)] Atorvastatin Calcium [Lipitor 80 80 mg PO DAILY 02/09/15 mg] Ferrous Sulfate [Ferrous Sulf 325 325 mg PO BID 02/09/15 MG (*)] Sodium Bicarbonate [Na Bicarb] 1,300 mg PO DAILY 02/09/15 Sodium Bicarbonate [Na Bicarb] 650 mg PO HS 02/09/15 Allopurinol [Allopurinol 100 MG 100 mg PO DAILY #0 tab 03/12/15 (*)] Furosemide [Lasix 80 MG (*)] 80 mg PO DAILY #0 tab 03/12/15 Furosemide [Lasix 40 MG (*)] 40 mg PO DAILY@12 12/13/15 Acetaminophen [Tylenol 325mg (*)] 325 - 650 mg PO Q4HRS PRN 04/21/17 Calcitriol [Calcitriol (*)] 0.25 mcg PO MO 04/21/17 Carvedilol [Coreg (*)] 6.25 mg PO HS 04/21/17 Carvedilol [Coreg (*)] 12.5 mg PO DAILY 04/21/17 Cholecalciferol Vit D3 [Vitamin D3 1,000 units PO DAILY 04/21/17 (*)] Cyanocobalamin [Vitamin B12 (*)] 100 mcg PO DAILY 04/21/17 Lisinopril [Zestril 5 mg (*)] 5 mg PO HS 04/21/17 Warfarin Sodium [Coumadin 3MG (*)] 3 mg PO DAILY 04/21/17 amLODIPine BESYLATE [Norvasc 10 mg 10 mg PO HS 04/21/17 (*)] Medical Decision Making ED Course/Re-evaluation: 1:40 p.m. the patient is doing very well. She has been eating soup. She and her daughter eager to return home. The declined further testing. Discussed indications for returning. Differential Diagnosis: Partial list of the Differential diagnosis considered include but were not limited to; hypoglycemia, insulin overdose and although unlikely based on the history and physical exam, I also considered infection, TIA, seizure. I discussed these differential diagnoses and the plan with the patient as well as the usual and expected course. The patient understands that the diagnosis is provisional and that in medicine we are not always correct and that further workup is often warranted. Usual and customary warnings were given. All of the patient's questions were answered. The patient was instructed to return to the emergency department should the symptoms at all worsen or return, otherwise to followup with the physician as we discussed. - Data Points Laboratory Results: Laboratory Results 10/03/17 11:49 10/03/17 11:49 Point of Care Test Results: Chemistry 10/03/17 11:34 POC Sodium 141 mEq/L mEq/L (135-145) POC Potassium 4.7 mEq/L mEq/L (3.3-5.0) POC Chloride 105 mEq/L mEq/L (97-110) POC BUN 100 mg/dL H mg/dL (7-23) POC Creatinine 2.6 mg/dL H mg/dL (0.6-1.0) POC Glucose 88 mg/dL mg/dL (70-100) ISTAT H&H 10/03/17 11:34 POC Hgb 13.3 gm/dL gm/dL (12.6-16.3) POC Hct 39 % % (38-47) Departure - Departure Disposition: Home, Routine, Self-Care Clinical Impression: Overdose of insulin Qualifiers: Encounter type: initial encounter Injury intent: accidental or unintentional Qualified Code(s): T38.3X1A - Poisoning by insulin and oral hypoglycemic [ antidiabetic] drugs, accidental (unintentional), initial encounter Condition: Fair Instructions: Hypoglycemia in a Person with Diabetes (ED) Referrals: Aarti Gerardo MD [Primary Care Provider] - As per Instructions
[2017-10-03 11:55] LABS: PLATELET COUNT 170 10^3/uL (150-400)
[2017-10-03 13:56] VITALS: BP 178/85
== END 2017-10-03 14:00 | disposition home or self-care (01) ==
DX: T38.3X1A Poisoning by insulin and oral hypoglycemic [antidiabetic] drugs, accidental (unintentional), initial encounter (principal); I25.10 Atherosclerotic heart disease of native coronary artery without angina pectoris; I50.9 Heart failure, unspecified; E11.9 Type 2 diabetes mellitus without complications; Z79.01 Long term (current) use of anticoagulants; Z79.4 Long term (current) use of insulin
CPT/HCPCS: 82435-PO; 82565-PO; 82947-PO; 84132-PO; 84295-PO; 84520-PO; 85014-PO

== ENCOUNTER → 2017-12-12 | Outpatient (CLI) | payer OTHER, BC | LOC: BMCIMAGING 11:08 | PROVIDERS: ATTEND Internal Medicine | DX: M79.671 Pain in right foot (principal) ==

== ENCOUNTER 2018-01-30 17:37 | Inpatient (IN) | payer OTHER, BC ==
--- NOTE | 2018-01-30 18:05 | EDPHY ---
H & P Time Seen by Provider: 01/30/18 17:56 HPI/ROS: CHIEF COMPLAINT: Shortness of breath, fatigue HISTORY OF PRESENT ILLNESS: 82-year-old female with ischemic cardiomyopathy, chronic renal insufficiency and severe anemia presents with shortness of breath and fatigue. Ongoing and gradually increasing fatigue. Associated with mild exertional SOB. No cp. She was seen by her primary care physician, Dr. Gerardo, just prior to arrival. Laboratory tests revealed hemoglobin 8.5, creatinine 3.3 , bnp 7000. Concern for severe anemia causing worsening CHF and renal function. Goal is to keep pt's Hgb at 10, per Dr. Gerardo. Sent to the emergency department for admission and blood transfusion. REVIEW OF SYSTEMS: complete 10 point ROS reviewed and is negative except for the noted elements in the HPI - Medical/Surgical History Hx Asthma: No Hx Chronic Respiratory Disease: Yes Hx Diabetes: Yes Hx Cardiac Disease: Yes Hx Renal Disease: Yes Hx Cirrhosis: No Hx Alcoholism: No Hx HIV/AIDS: No Hx Splenectomy or Spleen Trauma: No Other PMH: CAD & CBG 2000, CHF, AVR, kidney failure, anemia, type 2 diabetes, arthritis - Social History Smoking Status: Never smoked Alcohol Use: Sober Drug Use: None Constitutional: Initial Vital Signs Temperature (C) 36.8 C 01/30/18 18:00 Heart Rate 64 01/30/18 18:00 Respiratory Rate 18 01/30/18 18:00 Blood Pressure 178/98 H 01/30/18 18:00 O2 Sat (%) 97 01/30/18 18:00 O2 Delivery Mode Nasal Cannula O2 (L/minute) 2 Allergies/Adverse Reactions: codeine [Codeine] Allergy (Mild, Verified 01/30/18 18:02) NAUSEA Home Medications: Medication Instructions Recorded Insulin Glargine [Lantus 100 7 units SC DAILY 04/01/12 UNITS/ML] Insulin Lispro [humALOG LISPRO 100 0 - 7 unit SC TIDMEAL 07/12/14 units/ml (*)] Atorvastatin Calcium [Lipitor 80 80 mg PO DAILY 02/09/15 mg] Ferrous Sulfate [Ferrous Sulf 325 325 mg PO DAILY 02/09/15 MG (*)] Sodium Bicarbonate [Na Bicarb] 1,300 mg PO HS 02/09/15 Furosemide [Lasix 40 MG (*)] 80 mg PO DAILY 12/13/15 Acetaminophen [Tylenol 325mg (*)] 325 - 650 mg PO Q4HRS PRN 04/21/17 Calcitriol [Calcitriol (*)] 0.25 mcg PO MO 04/21/17 Cholecalciferol Vit D3 [Vitamin D3 2,000 units PO DAILY 04/21/17 (*)] Warfarin Sodium [Coumadin 3MG (*)] 4.5 mg PO THSA 04/21/17 Allopurinol [Allopurinol 100 MG 100 mg PO DAILY 01/31/18 (*)] Carvedilol [Coreg (*)] 6.25 mg PO BIDMEAL 01/31/18 Cyanocobalamin [Vitamin B12 (*)] 100 mcg PO DAILY 01/31/18 Warfarin Sodium [Coumadin 3MG (*)] 3 mg PO SUMOTUWEFR 01/31/18 amLODIPine BESYLATE [Norvasc 10 mg 10 mg PO DAILY #30 tab 02/01/18 (*)] Medical Decision Making - Diagnostics EKG Interpretation: EKG interpreted by me reveals NSR, rate 67, LBBB. Interpretation: abnormal EKG Imaging Results: CXR: CHF Imaging: I viewed and interpreted images myself ED Course/Re-evaluation: This patient presents with worsening shortness of breath and fatigue. stat EKG reveals no ischemia or dysrhythmia. creat 3.3, c/w worsening renal fxn. Hemoglobin 8.8, here for blood transfusion. Patient clearly understands the risks and benefits of blood transfusion and wishes to proceed. Patient is in no acute distress and oxygen saturation 95% on her usual 4 L by nasal cannula. Packed red blood cells 1 unit ordered per PCP request. The hospitalist service was consulted for admission. Decision not to give PRBC for now by hospitalist. Hospitalist to diurese pt, then consider transfusion if indicated. Pt stable and in NAD throughout. Differential Diagnosis: Altered mental status including but not limited to hypoglycemia, infectious process, electrolyte abnormality, head injury, CVA, and intoxicants. - Data Points Medications Given: Discontinued Medications Allopurinol (Allopurinol) 100 mg PO DAILY [facility] Stop: 07/31/18 08:59 Last Admin: 02/01/18 08:44 Dose: Not Given Amlodipine Besylate (Norvasc) 5 mg PO DAILY [facility] Stop: 07/30/18 12:59 Last Admin: 02/01/18 08:45 Dose: 5 mg Atorvastatin Calcium (Lipitor) 80 mg PO DAILY [facility] Stop: 07/31/18 08:59 Last Admin: 02/01/18 08:45 Dose: 80 mg Carvedilol (Coreg) 6.25 mg PO BIDMEAL [facility] Stop: 07/30/18 12:59 Last Admin: 02/01/18 08:45 Dose: 6.25 mg Ferrous Sulfate (Ferrous Sulfate) 325 mg PO DAILY [facility] Stop: 07/31/18 08:59 Last Admin: 02/01/18 08:45 Dose: 325 mg Furosemide (Lasix Injection) 20 mg IVP ONCE ONE Stop: 01/30/18 19:25 Last Admin: 01/30/18 19:38 Dose: 20 mg Furosemide (Lasix Injection) 40 mg IVP DAILY [facility] Stop: 07/31/18 08:59 Last Admin: 02/01/18 08:50 Dose: 40 mg Hydralazine HCl (Apresoline) 10 mg IVP Q6 PRN PRN Reason: SBP>160 Stop: 07/30/18 12:52 Last Admin: 02/01/18 03:47 Dose: 10 mg Insulin Glargine (Lantus Syringe) 7 units SC DAILY [facility] Stop: 07/30/18 12:59 Last Admin: 02/01/18 08:45 Dose: 7 units Insulin Human Regular (Humulin R) 0 unit SC MERGED WITH [facility] PRN Reason: Protocol Stop: 07/30/18 17:29 Last Admin: 02/01/18 13:38 Dose: Not Given Sodium Bicarbonate (Na Bicarb) 1,300 mg PO HS [facility] Stop: 07/30/18 20:59 Last Admin: 01/31/18 20:20 Dose: 1,300 mg Vitamin B Complex (Vitamin B12) 100 mcg PO DAILY [facility] Stop: 07/31/18 08:59 Last Admin: 02/01/18 08:45 Dose: 100 mcg Warfarin Sodium (Coumadin) 3 mg PO SUMOTUWEFR [facility] Stop: 07/30/18 12:59 Last Admin: 01/31/18 14:14 Dose: 3 mg Warfarin Sodium (Coumadin) 4.5 mg PO ThSa@1600 [facility] Stop: 07/31/18 15:59 Last Admin: 02/01/18 16:24 Dose: 4.5 mg Warfarin Sodium (Message-Coumadin Daily Order) 1 ea MISC DAILY@1500 [facility] Stop: 07/30/18 14:59 Last Admin: 02/01/18 15:30 Dose: 1 ea Departure - Departure Disposition: [facility] Inpatient Acute Clinical Impression: Severe anemia, Acute on chronic renal insufficiency Acute exacerbation of congestive heart failure Qualifiers: Heart failure type: combined systolic and diastolic Qualified Code(s): I50.43 - Acute on chronic combined systolic (congestive) and diastolic (congestive) heart failure Condition: Fair
[2018-01-30] MEDS ORDERED: FUROSEMIDE 20 MG/2 ML VIAL IVP ONE (19:24)
--- NOTE | 2018-01-30 19:36 | CPEKG ---
Test Reason : OPEN Blood Pressure : / mmHG Vent. Rate : 065 BPM Atrial Rate : 065 BPM P-R Int : 189 ms QRS Dur : 164 ms QT Int : 490 ms P-R-T Axes : 017 -49 110 degrees QTc Int : 510 ms Sinus rhythm Left bundle branch block Confirmed by Antonella Armendariz ([id number]) on 01/30/2018 7:35:59 PM Referred By: Confirmed By:Antonella Armendariz
--- NOTE | 2018-01-30 21:23 | GHP ---
DATE OF ADMISSION: 01/30/2018 CHIEF COMPLAINT: Fatigue, worsening anemia, worsening renal function. HISTORY OF PRESENT ILLNESS: This is an 82-year-old female with a history of CAD, status post CABG, a nd ischemic cardiomyopathy with left ventricular ejection fraction 66%, chronic diastolic heart failu re, status post moderate mitral stenosis, moderate mitral regurgitation, and [place] [facility] aortic valve replacement. Referred to the emergency department today by her primary care provider due to worseni ng labs. The patient was found to have a hemoglobin of 8.7, which is low for her. The patient states that she normally becomes symptomatic with a hemoglobin of less than 10. Also to note, her creatinine increa sed from 2.2 in March to 3.3 today, and also has a mildly elevated potassium of 5.1, an elevated B ASSOCIATE PATHOLOGIST of 9260. The patient states that she does have some shortness of breath. She denies any orthopnea or lower ex tremity edema. She has been compliant with her home medications. She denies any obvious gastrointes tinal bleeding. She has had no bloody stools or black colored stools. She has had some nosebleeds o kelli the past few days. PAST MEDICAL HISTORY: 1. Ischemic cardiomyopathy with left ventricular ejection fraction of 66%, status post CABG. 2. Chronic diastolic heart failure. 3. Moderate mitral stenosis, moderate mitral regurgitation. 4. Status post mechanical AVR. 5. Hypertension. 6. Type 2 diabetes mellitus. 7. Stage 4 chronic kidney disease. 8. Anemia of chronic disease. 9. Hyperlipidemia. MEDICATIONS: Refer to medication reconciliation in [facility]. ALLERGIES: Codeine. SOCIAL HISTORY: The patient is followed by Aarti Gerardo. She lives independently in [place] at [facility]. She denies any alcohol, tobacco, or illicit drug use. FAMILY HISTORY: Reviewed and noncontributory. REVIEW OF SYSTEMS: Comprehensive 10-point review of systems was done and is negative, except for as mentioned in HPI. PHYSICAL EXAM: VITAL SIGNS: Blood pressure 178/98, pulse of 64, respiratory rate 18, O2 saturation 97% on 6 L. Temperature afebrile. GENERAL: No acute distress. HEAD: Normocephalic, atraumatic. EYES: PERRLA. Sclerae anicteric. MOUTH: Moist mucous membranes. NECK: Supple. No lymphadenopat hy. CARDIOVASCULAR: S1 and S2, with a mechanical heart valve. There is no JVD. There is no lower extremity edema. PULMONARY: Lungs are clear. There are diminished breath sounds in bilateral bases . ABDOMEN: Soft, nontender, nondistended. No guarding or rebound tenderness. Normoactive bowel so unds. EXTREMITIES: No clubbing or cyanosis. NEUROLOGIC: Cranial nerves 2-12 grossly intact. No f ocal motor or sensory deficits. SKIN: Clear. No rashes. DIAGNOSTICS: WBC 6.4, hemoglobin 8.7, hematocrit 28.6, platelets 198, sodium 141, potassium 5.1, chl oride 105, CO2 24, BUN 105, creatinine 3.3, glucose 107. BNP is 9260, up from a BNP of 5750 in 2017. ASSESSMENT AND PLAN: This is an 82-year-old female, whom I have been asked to admit due to: 1. Worsening fatigue in the setting of anemia. Plan: Once again, the patient was referred to the e mergency department by her primary care provider for a blood transfusion. A blood transfusion has be en ordered by the emergency department. However, I am reluctant to urgently transfuse her, given her hemoglobin of 8.8, and the fact that she is hemodynamically stable. I worry that the extra volume c ould worsen her heart failure. Prior to the transfusion, I would recommend giving 20 mg of IV Lasix, which may help with her potassium as well. 2. Acute on chronic kidney disease. Plan: We will obtain urinalysis. We will also consult Nephrol carmencita for further assistance. 3. Acute on chronic combined heart failure. 4. Plan: See above. Will obtain a chest x-ray, as well as echocardiogram to evaluate her cardiac f unction. Once again, her last documented left ventricular ejection fraction was 67%. 5. Uncontrolled hypertension. Plan: We will continue her home medications and treat with p.r.n. bl ood pressure medications as indicated. The patient requests to be full code status. /[id number]/MODL
[2018-01-31 08:39] LABS: PLATELET COUNT 155 10^3/uL (150-400)
[2018-01-31 08:46] LABS: INR 3.04 (0.83-1.16); PROTIME(PATIENT) 31.3 SEC (12.0-15.0)
--- NOTE | 2018-01-31 09:45 | PDMN ---
Medical Necessity Medical necessity: Pt meets IP criteria per MD and MCG M-35; est los > 2 mn for ongoing management and tx of severe anemia with worsening fatigue, acute on chronic kidney failure, acute on chronic CHF, and uncontrolled HTN. Requiring possible transfusion, IV diuretics, and serial labs
--- NOTE | 2018-01-31 11:37 | ECHO ---
[email or web address] [address] [address] Main: [phone] Fax: [email or web address] Echocardiogram Name: LILIANA BERNAL MR#: [id number] Study Date: 01/31/2018 Study Time: 09:47 AM Date of : 1935 Age: 82 year(s) Height: 160 cm (63 in.) Weight: 58.97 kg (130 lb.) BSA: 1.61 m2 Gender: Female Examination: Echo Indication: Eval LV EF, previous echo 04/21/17 Image Quality: Contrast: Requested by: Clayton Martinez BP: 171 mmHg/84 mmHg Heart Rate: Rhythm: Indication: Eval LV EF, previous echo 04/21/17 Procedure Staff [employer] Researcher: Rosa Mays RD Reading Physician: Naresh Peguero MD Requesting Provider: Conclusions: Mildly dilated left ventricle. Mild concentric LV hypertrophy. Normal global systolic LV function. The ejection fraction is estimated to be 55-60 %. Grade 3 diastolic dysfunction (reversible restrictive LV filling pattern). E/e' of 41.6 consistent with elevated left atrial pressure. . Normal RV function. The left atrium is moderately dilated. The right atrium is mildly dilated. Severe mitral annular calcification. There is severe thickening of the mitral valve leaflets. Moderate mitral valve regurgitation is present. Moderate mitral valve stenosis is present. Posterior mitral leaflet appears to be fixed. MV mean PG is 7mmHG.. AV max PG is 21mmHG. AV mean PG is 10mmHG.. Mild tricuspid regurgitation is present. The pulmonary artery pressure is severely increased. RVSP is 82 mmHG. . Measurements: Chambers Valvular Assessment AV/MV Valvular Assessment TV/PV Normal Normal Normal Name Value Range Name Value Range Name Value Range Ao Minnie (MM): 3.2 cm (2.2 cm-3.7 AV Vmax: 2.30 m/s (1 m/s-1.7 TR Vmax: 4.08 mm/s ( - ) cm) m/s) TR PGmax: 67 mmHg ( - ) IVSd (2D): 0.8 cm (0.6 cm-1.1 AV meanP mmHg ( - ) syst. PAP: 82 mmHg ( - ) cm) ANGELA (VTI): 1.4 cm ( - ) LVDd (2D): 5.8 cm (3.9 cm-5.3 MV E Vmax: 2.27 m/s ( - ) cm) MV A Vmax: 1.21 m/s ( - ) Patient: LILIANA BERNAL Study Date: 01/31/2018 Page 1 of 3 09:47 AM LVDs (2D): 3.8 cm (2.1 cm-4 MV E/A: 1.88 ( - ) cm) MV meanP mmHg ( - ) LVPWd (2D): 1.0 cm ( - ) MV PHT: 0.054 s ( - ) LVOTd 1.9 cm 1.9 cm mm MVA (Vmax): 1.2 m/s ( - ) LVEF (MOD4): 65 % (>=55 %) MVA (PHT): 4.1 s ( - ) EF Range: 55-60 % Continued Measurements: Chambers Valvular Assessment AV/MV Valvular Assessment TV/PV Name Value Name Value Name Value LADs: 4.6 cm MV Annulus: 4.0 cm CVP (est.): 15 mmHg LADs Lon.9 cm MV DecTime: 197 m/s LA Area: 23.5 cm2 MV E' Septal: 0.04 m/s LA Volume: 75 ml MV E/E' Septal: 59.70 LA Volume Index: 46.6 ml/m2 MV E/E' Lateral: 41.60 MV VTI: 62.20 cm MR ERO: 0.150 cm2 MR PISA radius: 6 mm MR Reg. Volume: 29 ml MR Reg. Fraction: 4 % Additional Vessels Name Value Ao Ascendin.7 cm Findings: Left Ventricle: Mildly dilated left ventricle. Mild concentric LV hypertrophy. Normal global systolic LV function. The ejection fraction is estimated to be 55-60 %. No regional wall motion abnormality. Grade 3 diastolic dysfunction (reversible restrictive LV filling pattern). E/e' of 41.6 consistent with elevated left atrial pressure. . Right Ventricle: Normal size right ventricle. Normal RV function. Left Atrium: The left atrium is moderately dilated. Right Atrium: The right atrium is mildly dilated. Mitral Valve: Severe mitral annular calcification. There is severe thickening of the mitral valve leaflets. Moderate mitral valve regurgitation is present.Moderate mitral valve stenosis is present. Mean mitral valve gradient 7mmHg. Posterior mitral leaflet appears to be fixed. MV mean PG is 7mmHG.. Aortic Valve: The aortic valve is a mechanical prosthesis.. Normal functioning aortic valve prosthesis. Trivial prosthesis regurgitation. AV max PG is 21mmHG. AV mean PG is 10mmHG.. Tricuspid Valve: The tricuspid valve is normal in appearance and function. Mild tricuspid regurgitation is present. The pulmonary artery pressure is severely increased. RVSP is 82 mmHG. . Pulmonic Valve: The pulmonic valve is normal in appearance and function. Trivial pulmonic valve regurgitation. Aorta: The aorta is normal. IVC: The IVC is dilated. Pericardium: No pericardial effusion. Patient: LILIANA BERNAL Study Date: 01/31/2018 Page 2 of 3 09:47 AM (No Signature Object) Patient: LILIANA BERNAL Study Date: 01/31/2018 Page 3 of 3 09:47 AM [id number]
[2018-01-31] MEDS ORDERED: hydrALAZINE 20 MG/ML VIAL IVP PRN ×2 (12:53→13:03)
[2018-01-31] MEDS ORDERED: D50W 25 GM/50 ML SYR IVP PRN (12:54)
[2018-01-31] MEDS ORDERED: WARFARIN SODIUM 3 MG TAB PO SCH (13:00)
[2018-01-31] MEDS: INSULIN GLARGINE 100 UNITS/ML UNIT SC SCH (14:13)
[2018-01-31] MEDS: amLODIPine BESYLATE 5 MG TAB PO SCH (14:14)
[2018-01-31] MEDS: CARVEDILOL 3.125 MG TAB PO SCH ×2 (14:14→20:18)
--- NOTE | 2018-01-31 14:25 | HOSPPROG ---
Hospitalist Progress Note Assessment/Plan: * Acute on chronic renal failure -baseline about 2.3, creatinine 3.3 on admission -doesn't seem volume overloaded - will try gentle IVF -hold lisinopril * Moderate MS -consult cardiology - d/w Christopher Ravin JORGE * Anemia - review of chart shows this to be near baseline -suspect anemia of CKD -no indication for transfusion * CAD/CABG * Chronic diastolic CHF -does not appear clinically volume overloaded * AVR - mechanical -chronic warfarin - therapeutic * DM II, uncontrolled -check HgA1c Subjective: No improvement, still very fatigued Objective: Vital Signs Temp Pulse Resp BP Pulse Ox 36.7 C 67 13 186/80 H 99 01/31/18 11:05 01/31/18 11:05 01/31/18 11:05 01/31/18 11:05 01/31/18 11:05 Laboratory Results 01/31/18 08:30 01/31/18 08:30 01/30/18 01/31/18 02/01/18 05:59 05:59 05:59 Intake Total 100 863 Output Total 600 550 Balance -500 313 PT 31.3 SEC (12.0-15.0) H 01/31/18 08:30 INR 3.04 (0.83-1.16) H 01/31/18 08:30 d/w Dr Gordon regarding renal consultation CXR viewed, my personal interpretation is - minimal CHF, possible chronic - Physical Exam Constitutional: no apparent distress, appears nourished, not in pain Cardiovascular: regular rate and rhythym, no murmur, rub, or gallop Respiratory: no respiratory distress, no rales or rhonchi, clear to auscultation Gastrointestinal: normoactive bowel sounds, soft, non-tender abdomen, no palpable masses Skin: no rashes or abrasions, no fluctuance, no induration Neurologic: AAOx3, sensation intact bilaterally Psychiatric: interacting appropriately, not anxious, not encephalopathic, thought process linear ICD10 Worksheet Patient Problems: Problems Problem Status Onset Chronic kidney disease stage 4 Active CAD - Coronary arteriosclerosis Active Hyperlipidemia Active Mechanical prosthetic aortic valve replacement Acute Diabetes mellitus type 2 Acute Iron deficiency anemia Acute CHF - Diastolic heart failure Acute Chronic Disease Management/Transitional Care Program Acute Acute exacerbation of congestive heart failure Acute Acute on chronic renal insufficiency Acute Abrasion of knee, right Acute Displaced fracture of right femoral neck Acute Overdose of insulin Acute Severe anemia Acute
[2018-01-31] MEDS ORDERED: NS 1,000 ML IV SCH (14:30)
--- NOTE | 2018-01-31 15:08 | ASMTCMCOM ---
CM Note CM Note Notes: 01/31/2018 Case Management Note Pt admitted for severe anemia. Met w/pt to discuss d/c needs. Pt lives independently in the [facility] across from the [place]. She walks to [employer] for groceries. Her daughter Madelyn [phone] also gives her rides when needed. 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 Gerardo PT is recommending Home Care. Pt agreeable. Discussed options, pt chose [facility]. Faxed referral. Case Management d/c poc: [facility] RN PT Case Management to follow. Date Signed: 01/31/2018 03:07 PM Electronically Signed By:Samantha Wiseman RN
--- NOTE | 2018-01-31 15:19 | GCON ---
DATE OF CONSULTATION: 01/31/2018 REASON FOR CONSULTATION: Opinion regarding chronic kidney disease. HISTORY OF PRESENT ILLNESS: This is a very pleasant 82-year-old female who was in her usual state of health until yesterday, she was visiting with her primary care physician and was not doing well, so was admitted to the hospital for failure to thrive and generally feeling poorly. She has not been west ving fevers, chills, nausea, vomiting, chest pain. She does have chronic shortness of breath and wea rs supplemental oxygen at all times. No cough or sputum production. No hemoptysis, hematemesis, epi staxis, abdominal pain, diarrhea, constipation, melena, hematochezia. She did have some lower extrem ity swelling. No rash, arthritis or arthralgias. PAST MEDICAL HISTORY: Significant for: 1. Chronic kidney disease stage 4 with an estimated GFR of around 18 cc a minute due to diabetes and hypertension. 2. Diabetes mellitus type 2. 3. Hypertension. 4. Anemia. 5. Iron deficiency. 6. Coronary artery disease. 7. Status post coronary artery bypass grafting x2. 8. Aortic valve disease. 9. Status post aortic valve replacement. 10. Warfarin anticoagulation. 11. Obstructive sleep apnea syndrome. 12. Pulmonary hypertension. 13. Congestive heart failure. 14. Gout. 15. Status post carotid endarterectomy. 16. Metabolic acidosis. 17. Secondary hyperparathyroidism. ALLERGIES: To codeine. CURRENT MEDICATIONS: Include: 1. Allopurinol 100 mg daily. 2. Amlodipine 5 mg daily. 3. Lipitor 80 mg daily. 4. Calcitriol 0.25 mcg every Monday. 5. Coreg 6.25 mg twice daily. 6. Sodium bicarbonate 1.3 g at bedtime. 7. Vitamin B12. 8. Insulin. 9. Iron sulfate 325 mg daily. 10. Warfarin. REVIEW OF SYSTEMS: A complete 12-point review of systems was performed with pertinent positives and negatives as per the previous sections. SOCIAL HISTORY: Denies tobacco, alcohol, IV or recreational drugs. 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 She had her aortic valve replacement and bypass surgery at [facility]. PHYSICAL EXAMINATION: VITAL SIGNS: Blood pressure 186/80, pulse 67, temperature 36.7, respirations 13. Urine output about 550 cc overnight. GENERAL: She is awake, alert, cooperative and is in no ac arjun distress. HEENT: Pupils are reactive to light. Extraocular movements are intact. She has supplem ental oxygen in place. Mucous membranes are moist. NECK: No lymphadenopathy or thyromegaly. She gomez s have some JVD and carotid bruit. HEART: Regular grade 2/6 systolic murmur. She has what sounds l jen a mechanical valve click. LUNGS: Decreased breath sounds in the bases. Occasional rales. No r honchi or wheezes. ABDOMEN: Bowel sounds are positive. Soft, nontender, nondistended. No obvious or ganomegaly, masses, or bruits. EXTREMITIES: Trace edema. No cyanosis or clubbing. NEUROLOGIC: No ast erixis. SKIN: Bruises but no other unusual rashes or lesions. LYMPH: No palpable lymphadenopathy or lymphedema. MUSCULOSKELETAL: No effusions or tenderness. LABORATORY: From October 2017, her serum sodium was 143, potassium 5.1, chloride 103, CO2 27, BUN 84, creatinine 2.6, glucose 196. Estimated GFR of 18 cc/minute. Calcium 9.8, albumin 3.6, intact PTH w as 443.4, hemoglobin was 8.6, blood pressure at that time was 140/42. Yesterday on admission, WBC 6. 35, hemoglobin 9.8, hematocrit 30.7, platelet count 155,000. INR of 3.04, calcium 9.4. Serum sodium 139, potassium 4.9, chloride 105, CO2 22, BUN 97, creatinine 3, glucose 202. IMPRESSION: 1. Chronic kidney disease stage 4. Estimated GFR of 18 cc/minute. Baseline creatinine of around 2. 6. 2. Raised creatinine, now about 3. 3. Anemia of chronic kidney disease as well as warfarin anticoagulation. 4. Hypertension that needs a bit better control. 5. Secondary hyperparathyroidism on calcitriol. RECOMMENDATIONS: 1. She is having some fatigue. I think we will check a TSH and a free T4. 2. Continue her current medications. 3. Her blood pressures have been bouncing around a bit. I do not know that I would want to treat an ything differently for right now, let's see what her next blood pressure brings. 4. She and I discussed renal replacement options. She says she has discussed this with Dr. Talita hensley and is not interested now or in the future with being on dialysis. Thank you for allowing me to participate in the care of your patient. If there are any questions, pl ease do not hesitate to contact us. We will be following along with you. /[id number]/MODL
[2018-01-31] MEDS: INSULIN REGULAR HUMAN 100 UNIT/ML UNIT SC SCH ×2 (18:17→21:05)
--- NOTE | 2018-01-31 18:50 | GCON ---
CARDIOLOGY CONSULTATION REFERRING PHYSICIAN: Dr. Delong INDICATION FOR CARDIOLOGY CONSULTATION: Patient with known history of CAD, significant valvular heart disease. HISTORY OF PRESENT ILLNESS: The patient is an 82-year-old female who has been seen in the hospital by our group in the past. She informs me she had seen Dr. Gresham of [facility] in the past, but has not seen any cardiology provider since her hospitalization in 2014. She has significant past history that includes CAD with previous CABG x2 vessels and valvular heart disease in which she underwent mechanical aortic valve replacement in 1999 at [facility], chronic left bundle branch block, moderate mitral stenosis and regurgitation, chronic diastolic heart failure, chronic renal insufficiency with baseline creatinine at 2.2-2.3, anemia (sees Hematology Procrit), pulmonary hypertension, and carotid artery disease with remote carotid enterectomy. She reports over the last month she has been fatigued. She has known chronic shortness of breath, feels that this has not worsened. Denies any significant weight gain. She did see her PCP, Dr. Saleem at [facility] yesterday, at which laboratory studies were drawn. It was noted that she did have a hemoglobin of 8.7 and hematocrit of 28.6. She was sent to the hospital for consideration of transfusion. Upon arrival, prep was made for transfusion. In preparation, she was given Lasix, and this morning, her H and H did improve up to 9.8 and 30.7. No transfusion was done. At the current time , she reports she continues to feel fatigued, denies any worsening of shortness of breath. She denies any history of chest pain or pressure. She has had no recent fevers, chills or nausea. She feels that her appetite is mildly decreased. She reports no bleeding issues. She does report mild swelling in her lower extremities, but feels that this has not worsened. PAST MEDICAL HISTORY: Includes coronary artery disease with previous CABG, valvular heart disease with previous mechanical valve, aortic valve implantation , known history of mitral stenosis, moderate mitral stenosis, chronic diastolic heart failure, left bundle branch block, insulin-dependent diabetes, gout, pulmonary hypertension, carotid artery disease with previous carotid enterectomy , previous GI bleed 9 years ago, and anemia of chronic disease. PAST SURGICAL HISTORY: Includes CABG x2 vessels and aortic valve replacement, mechanical, in 2001. FAMILY HISTORY: Positive for premature coronary artery disease. SOCIAL HISTORY: Patient lives independently. She is at [facility]. She denies of any alcohol use. Denies of any tobacco use. Denies of any illicit drug use. ALLERGIES: Codeine. HOME MEDICATIONS: 1. Amlodipine 5 mg p.o. daily. 2. Amlodipine 5 mg p.o. h.s. 3. Warfarin 3 mg p.o. Monday, Monday, Monday, Monday, Monday. 4. Warfarin 4.5, mg and Saturdays. 5. Sodium bicarb 1300 mg p.o. h.s. 6. Lisinopril 5 mg p.o. h.s. 7. Humalog insulin 0-7 units subcu with meals. 8. Lantus 7 units subcu daily. 9. Lasix 80 mg p.o. daily. 10. Ferrous sulfate 325 mg p.o. daily. 11. Vitamin B12 1000 mcg p.o. daily. 12. Vitamin D3 2000 units p.o. daily. 13. Carvedilol 6.25 mg p.o. b.i.d. meals. 14. Calcitriol 0.25 mg p.o. Monday. 15. Atorvastatin 80 mg p.o. daily. 16. Allopurinol 100 mg p.o. daily. 17. Acetaminophen 325-650 mg p.o. q.4 hours p.r.n. REVIEW OF SYSTEMS: A 10-point review of systems done on patient. All negative except as mentioned above. PHYSICAL EXAMINATION: GENERAL APPEARANCE: Elderly appearing female in no acute distress. Alert, oriented to person, place, time, and situation. VITAL SIGNS: Current vital signs are blood pressure of 160/90, heart rate of 66 , respirations are 12, saturating 97% on 3 L nasal cannula, temperature 36.7 degrees Celsius. HEENT: Head is normocephalic. Lips and tongue are pink and moist with no signs of cyanosis. Conjunctivae pink. NECK: Trachea is midline , +2 carotid pulses bilateral, positive bruits bilateral, JVD 6-7 cm above sternal notch at a 45-degree angle. RESPIRATORY: Lungs are diminished in bases bilateral, no rhonchi, rales or wheezing noted. No accessory muscle use, no intercostal muscle retraction noted. CARDIAC: Regular rate, regular rhythm , S1, S2 with mechanical valve click noted in upper chest. ABDOMEN: Soft, nontender, bowel sounds x4 quadrants, no organomegaly, no palpable masses. SKIN : Pillager, warm, dry, no cyanosis, no clubbing, trace to +1 peripheral edema bilateral lower extremities. VASCULAR: +2 carotids bilateral, +2 radials bilateral, faint to +1 post tibial pulses bilateral. LABORATORY STUDIES: Laboratory studies drawn yesterday showed WBC of 6.74, hemoglobin 8.7, hematocrit 28.6, platelet count of 198, sodium 141, potassium 5.1, chloride 105, CO2 24, BUN 105, creatinine 3.3, glucose 107, hemoglobin A1c 8.1, calcium 9.9, iron 127, TIBC 374, iron saturation 34, ferritin 5.7, total bilirubin 0.6, AST 29, ALT 11, alkaline phosphate 122, pro-BNP 9260, total protein 6.6, albumin 3.8, TSH 4.1, free T4 1.3. Today, hemoglobin and hematocrit of 9.8 and 30.7, potassium 4.9, BUN 97, creatinine 3.0, glucose 202. STUDIES: Electrocardiogram done on 01/30 showing left bundle branch block with LVH. Chest x-ray findings consistent with mild congestive heart failure. Echocardiogram done this morning noting mild concentric LVH, normal LV systolic function with EF of 55% to 60%, grade 3 diastolic dysfunction. Normal RV function. LA is moderately dilated. RA is mildly dilated, severe mitral annular calcification with severe thickening of the mitral valve leaflets. Moderate MR is present, moderate mitral valve stenosis present with mean gradient of 7 mmHg. Aortic valve is mechanical with a mean peak gradient of 10 mmHg. Mild TR, RVSP elevated at 82 mmHg. The patient is noted to have an abnormal MPI study, dated March 01, 2015, which did note myocardia ischemia involving the anterior septal junction extending to the apex. ASSESSMENT AND PLAN: 1. Fatigue symptoms: The patient has multiple comorbidities that could be contributing to this. The patient has been noted to have anemia, which improved with diuresis. Laboratory studies did note normal TSH level. She is noted to have an elevated BNP, which reviewing past records, her average has been in [id number] in which yesterday was noted to be 9260. She denies having any chest pressure or pain. Potentially her fatigue symptoms could be caused from worsening diastolic heart failure. Would recommend continuation of diuresis. 2. Chronic diastolic heart failure: The patient was noted to have mild jugular venous distension. Pulmonary pressures are up from previous echocardiogram done in March. Chest x-ray suggests some mild CHF. She did have some mild diuresis with intravenous Lasix given last evening. She was noted to have an elevated creatinine from her baseline of 2.3 to 3.3 on admission. This did improve after Lasix, question some cardiorenal. At this time, I would recommend increased diuresis, will defer to Nephrology for recommendation. 3. Valvular heart disease: The patient is known to have previous aortic valve replacement with mechanical valve, INRs are within normal limits, she has been resumed on home warfarin dosage. Aortic Mean peak gradient is not significantly high and does correlate with previous echocardiogram reading. For her moderate mitral stenosis and regurgitation, reviewing previous echocardiogram, mean gradient is not significantly elevated and in comparison to previous echocardiogram done earlier this year, no significant change. Potentially could be contributing to her heart failure. Continue medical management. 4. Pulmonary hypertension: Patient with known pulmonary hypertension, pressures on previous echocardiogram in March of this year was in the 70s, currently in the 80s. Patient continue on home oxygen therapy, continue blood pressure and diuresis management. 5. Anemia: Patient noted to have anemia, she is followed by Hematology, and does get routine Procrit. H and H improved with diuresis with Lasix from yesterday. Potentially some dilutional effect happening, with diastolic heart failure. 6. Coronary artery disease: Patient with previous coronary artery bypass graft. She denies any chest pain or pressure. She is noted to have abnormal stress test in 2014 which noted ischemia along anterior wall. It was decided at that time to treat with medical management due to her renal insufficiency and concerns about intravenous contrast. Echocardiogram today showing no wall motion abnormalities. She reports no chest pain, pressure. Continue on home dose of beta-blockers. She is not on aspirin therapy due to her history of anemia and being on chronic anticoagulation therapy of warfarin. She is on secondary risk prevention with atorvastatin. 7. Hypertension: Patient noted to be elevated blood pressures, she has been resumed on home amlodipine and carvedilol and has been started on hydralazine, continue to adjust as necessary. 8. Chronic kidney disease: The patient is being followed by Nephrology. She has had an improvement in her creatinine from 3.3 down to 3.0 post Lasix. Question some cardiorenal syndrome. We will defer to Nephrology for further diuresis. 9. Diabetes: The patient is being followed by Hospital Medicine for management. Thank you for this consultation. The patient was discussed with Dr. Delong and Dr. Alicea. /[id number]/MODL MTDD
[2018-01-31] MEDS ORDERED: SODIUM BICARBONATE 650 MG TAB PO SCH (21:00)
[2018-02-01 04:22] LABS: PLATELET COUNT 141 10^3/uL (150-400)
[2018-02-01 04:30] LABS: INR 2.7 (0.83-1.16); PROTIME(PATIENT) 28.6 SEC (12.0-15.0)
[2018-02-01] MEDS: INSULIN REGULAR HUMAN 100 UNIT/ML UNIT SC SCH ×2 (08:09→13:38)
[2018-02-01] MEDS: INSULIN GLARGINE 100 UNITS/ML UNIT SC SCH (08:45)
[2018-02-01] MEDS: CARVEDILOL 3.125 MG TAB PO SCH (08:45)
[2018-02-01] MEDS: amLODIPine BESYLATE 5 MG TAB PO SCH (08:45)
[2018-02-01] MEDS ORDERED: SODIUM BICARBONATE 650 MG TAB PO SCH (09:00)
[2018-02-01] MEDS ORDERED: FERROUS SULFATE 325 MG TAB PO SCH (09:00)
[2018-02-01] MEDS ORDERED: ATORVASTATIN CALCIUM 40 MG TAB PO SCH (09:00)
[2018-02-01] MEDS ORDERED: ALLOPURINOL 100 MG TAB PO SCH (09:00)
[2018-02-01] MEDS ORDERED: CYANO/VITAMIN B12 100 MCG TAB PO SCH ×2 (09:00)
[2018-02-01] MEDS ORDERED: FUROSEMIDE 40 MG/4 ML VIAL IVP SCH (09:00)
--- NOTE | 2018-02-01 10:45 | SOAPPROG ---
SOAP Progress Note Assessment/Plan: Assessment: CKD 4, baseline creat middle 2's volume overload better SOB improved with diuresis not a dialysis candidate, doesn't want to do dialysis Plan: continue furosemide for now she says she has outpatient follow up with Evan next week ok for dismissal when OK with others 02/01/18 10:41 Subjective: dressed up to chair "I'm ready to go home." SOB better no cp nausea vomiting or anorexia slept OK spirits good Objective: Vital Signs Temp Pulse Resp BP Pulse Ox 36.8 C 65 16 155/80 H 99 02/01/18 07:44 02/01/18 07:44 02/01/18 07:44 02/01/18 07:44 02/01/18 07:44 Laboratory Results 02/01/18 03:08 02/01/18 03:08 01/31/18 02/01/18 02/02/18 05:59 05:59 05:59 Intake Total 100 1613 Output Total 600 1250 Balance -500 363 PT 28.6 SEC (12.0-15.0) H 02/01/18 03:08 INR 2.70 (0.83-1.16) H 02/01/18 03:08 Physical Exam - Physical Exam General Appearance: alert, thin Neck: normal inspection Respiratory: No rhonchi, No wheezing Cardiac/Chest: regular rate, rhythm, systolic murmur, other (click) Abdomen: normal bowel sounds, non-tender, soft Skin: warm/dry Extremities: swelling (improved) Neuro/Psych: alert, normal mood/affect, oriented x 3 ICD10 Worksheet Patient Problems: Problems Problem Status Onset Acute exacerbation of congestive heart failure Acute Acute on chronic renal insufficiency Acute Severe anemia Acute CAD - Coronary arteriosclerosis Active Chronic kidney disease stage 4 Active Hyperlipidemia Active Abrasion of knee, right Acute CHF - Diastolic heart failure Acute Chronic Disease Management/Transitional Care Program Acute Diabetes mellitus type 2 Acute Displaced fracture of right femoral neck Acute Iron deficiency anemia Acute Mechanical prosthetic aortic valve replacement Acute Overdose of insulin Acute
[2018-02-01] MEDS ORDERED: amLODIPine BESYLATE 5 MG TAB PO SCH (10:54)
--- NOTE | 2018-02-01 10:59 | PDIAF ---
- Diagnosis Diagnosis: acute on chronic renal failure, HTN, diabetes, anemia Code Status: Full Code - Medication Management Discharge Medications: electronically signed and located in the Home Medication List. - Orders Services needed: Home Care, Registered Nurse, Physical Therapy, Occupational Therapy Home Care Face to Face: I certify that this patient was under my care and that I had the required [id number] encounter meeting the encounter requirements on the discharge day. My findings support the fact that the patient is homebound as defined in Home Care Face to Face Continued: CMS Chapter 7 Medicare Benefits Manual 30.1.1 , The condition of the patient is such that there exists a normal inability to leave home and consequently, leaving home would require a considerable and taxing effort. Isolation Type: None Diet Recommendation: no restrictions on diet - Labs/Radiology BMP Date: 02/05/18 - Follow Up Care Current Providers and Referrals: Aarti Gerardo MD [Primary Care Provider] - As per Instructions Min Gordon MD [Medical Doctor] - follow up in 1 week
--- NOTE | 2018-02-01 11:46 | ASDISCHSUM ---
Discharge Information Plan Status:Home with Home Health Medically Cleared to Leave: Discharge Date: D/C Disposition: ADT D/C Disposition:Home Health Service Projected Discharge Date:02/01/2018 11:00 AM Transportation at D/C: Discharge Delay Reason: Follow-Up Date:02/01/2018 11:00 AM Discharge Slot: Final Diagnosis: Placement Information Referral Type:*Home Health Care Services Referral ID:[id number] Provider Name:[facility] Address 1:[address] Address 2: City:[place] Selection Factors: State:[place] Patient Contact Information Contact Name:TERRI Relationship:Daughter Address:[address] City:[place] Alternate Phone: State/Zip Code:[place] [address] Email: Financial Information Financial Class:Medicare Primary Plan Desc:MEDICARE INPATIENT Primary Plan Number:[id number] Secondary Plan Desc:[facility] Secondary Plan Number:[id number] Assessment Information LACE LACE Length of stay for Answers: 2 days current admission Acuity / Level of Answers: No Care: Did the patient have an inpatient admission? Comorbidities - select Answers: Congestive heart failure all that apply Coronary Artery Disease Diabetes (uncontrolled or controlled) Moderate or severe liver or renal disease Other Notes: Hyperlipidemia # of Emergency department Answers: 1-2 visits in the last 6 months Score: 13 Date Signed: 02/01/2018 11:45 AM Electronically Signed By:DOLLY Garsia [facility] CM Progress Note CM Note CM Note Notes: 01/31/2018 Case Management Note Pt admitted for severe anemia. Met w/pt to discuss d/c needs. Pt lives independently in the [facility] across from the [place]. She walks to [employer] for groceries. Her daughter Madelyn [phone] also gives her rides when needed. 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 personal lines sales rep: Dr. Gerardo PT is recommending Home Care. Pt agreeable. Discussed options, pt chose [facility]. Faxed referral. Case Management d/c poc: [facility] NURIS PT Case Management to follow. Date Signed: 01/31/2018 03:07 PM Electronically Signed By:Samantha Wiseman RN Case Management Discharge Plan Note Case Management Discharge Discharge Order Complete? Answers: Yes Patient to Obtain Answers: via Family Medications Transportation Arranged Answers: Family/Friends EMTALA Complete Answers: No Case Management Transport Answers: No Form Complete Faxed Final Orders Answers: Yes Agency/Facility Transfer Answers: Yes Report Printed & Faxed to Receiving Agency Family Notified Answers: No Discharge Comments Notes: Pts case discussed in tx rounds. Pt is being discharged today. CM met w/ pt for dispo planning. Pt is agreeable to HC services and willing to be homebound. Pt has had [facility] in the past. Pt is requesting for a different PT but would like the same RN. Pts daughters will be picking pt up. CM notified [facility] of the d/c. CM provided NURIS Christensen w/ phone number to give report. CM available for changes. Plan: [facility]; PT RN Date Signed: 02/01/2018 11:44 AM Electronically Signed By:DOLLY Garsia Intervention Information Intervention Type:*Incorrect Registration Date of Service:01/30/2018 09:47 AM Patient Type:Inpatient Staff Member:Bertha Aguilar Hours: Discipline: Severity: Comment:
[2018-02-01 11:50] VITALS: BP 176/71
[2018-02-01] MEDS ORDERED: WARFARIN SODIUM 3 MG TAB PO SCH (16:00)
--- NOTE | 2018-02-01 19:09 | GDS ---
DISCHARGE DIAGNOSES: 1. Acute on chronic renal failure. 2. Anemia of chronic disease and chronic renal failure. 3. Moderate mitral stenosis. 4. Coronary artery disease, status post coronary artery bypass graft. 5. Acute on chronic diastolic congestive heart failure. 6. Aortic mitral valve replacement. 7. Diabetes type 2. 8. Chronic respiratory failure, 3 L baseline. HISTORY: This is an 82-year-old female, admitted by her primary care physician for abnormal laboratory studies and fatigue. She has an elevated creatinine beyond baseline as well as anemia. Upon presentation here, her anemia was found to be at her usual baseline and consistent with anemia of chronic kidney disease and chronic disease. There was no indication for transfusion. Her baseline creatinine is 2.3. On presentation her creatinine was up to 3.3, both Nephrology and Cardiology were consulted. Cardiology felt she was mildly volume overloaded and ordered IV Lasix and with this intervention she did have improvement in her creatinine. Her lisinopril was held. Per Nephrology she has a longstanding wish of never initiating dialysis and they think there is some progression of her underlying chronic renal failure. She follows closely with Dr. Gordon. At the time of discharge she is felt to be returned to near baseline. DISCHARGE MEDICATIONS: Please see computerized record for full detailed list. New medications: Amlodipine increased from 5 mg to 10 mg p.o. daily for uncontrolled hypertension. Discontinued medications are lisinopril 5 mg p.o. at bedtime. She will continue with Lasix at her previous dose of 80 mg p.o. daily. ADDITIONAL DISCHARGE INSTRUCTIONS: 1. Follow up with Dr. Gordon as scheduled in 1 week. 2. Follow up with Christopher Alicia, nurse practitioner at [facility] in 1 week. 3. Follow up with Aarti Gerardo, primary care as needed. 4. Home health arranged for PT, OT, VNS. /[id number]/MODL MTDD
[2018-02-02] MEDS ORDERED: WARFARIN SODIUM 3 MG TAB PO SCH (16:00)
[2018-02-05] MEDS ORDERED: CALCITRIOL 0.25 MCG CAP PO SCH (12:52)
== END 2018-02-01 15:44 | disposition home health service (06) | DRG 291 ==
LOC: OBSVTOIN 19:25 → F2W 21:10
PROVIDERS: ADMIT Family Medicine; ATTEND Family Medicine
PROC: 30233N1 Transfusion of Nonautologous Red Blood Cells into Peripheral Vein, Percutaneous Approach (ICD-10-PCS; principal; 2018-01-30)
DX: I13.0 Hypertensive heart and chronic kidney disease with heart failure and stage 1 through stage 4 chronic kidney disease, or unspecified chronic kidney disease (principal); I50.33 Acute on chronic diastolic (congestive) heart failure; N18.4 Chronic kidney disease, stage 4 (severe); J96.10 Chronic respiratory failure, unspecified whether with hypoxia or hypercapnia; N17.9 Acute kidney failure, unspecified; D63.1 Anemia in chronic kidney disease; I05.0 Rheumatic mitral stenosis; I25.5 Ischemic cardiomyopathy; I25.10 Atherosclerotic heart disease of native coronary artery without angina pectoris; E11.9 Type 2 diabetes mellitus without complications; E21.2 Other hyperparathyroidism; Z95.1 Presence of aortocoronary bypass graft; Z95.4 Presence of other heart-valve replacement; Z79.4 Long term (current) use of insulin
CPT/HCPCS: 86905-90; 97116-GP; 97161-GP; 97165-GO; 97530-GO; 97535-GO; 99001-90; G8978-GP-CJ; G8979-GP-CI; G8980-GP-CI; G8987-GO-CI; G8988-GO-CI; J0360; J1815; J1940; P9016

== ENCOUNTER 2018-02-24 12:40 | Outpatient (CLI) | payer OTHER, BC ==
[2018-02-24 19:42] VITALS: BP 144/60
== END 2018-02-24 18:45 | disposition home or self-care (01) ==
LOC: FOBOP 12:40
PROVIDERS: ATTEND Internal Medicine Hematology & Oncology
PROC: 30253N1 (ICD-10-PCS; principal; 2018-02-24)
DX: D64.9 Anemia, unspecified (principal); D63.1 Anemia in chronic kidney disease
CPT/HCPCS: 36430; P9016; 99001-90

== ENCOUNTER 2018-03-29 11:20 | Emergency (ER) | payer OTHER, BC ==
--- NOTE | 2018-03-29 11:50 | EDPHY ---
H & P Stated Complaint: SOB Time Seen by Provider: 03/29/18 11:33 HPI/ROS: CHIEF COMPLAINT: Shortness of breath HISTORY OF PRESENT ILLNESS: 82-year-old female with multiple medical problems including congestive heart failure and coronary artery disease presents with shortness of breath. She has chronic respiratory failure and is on 3 L by nasal cannula around the clock. This morning she felt fine getting ready for a doctor's appointment and walked to the car without problem. However, when she was walking to the doctor's office, she became short of breath and needed to sit down. No associated chest pain, dizziness or other symptoms. No recent illness; no cough, fever or URI symptoms. She denies shortness of breath currently. REVIEW OF SYSTEMS: complete 10 point ROS reviewed and is negative except for the noted elements in the HPI - Personal History Current Tetanus/Diphtheria Vaccine: Yes - Medical/Surgical History Hx Asthma: No Hx Chronic Respiratory Disease: Yes Hx Diabetes: Yes Hx Cardiac Disease: Yes Hx Renal Disease: Yes Hx Cirrhosis: No Hx Alcoholism: No Hx HIV/AIDS: No Hx Splenectomy or Spleen Trauma: No Other PMH: CAD & CBGx3 2000, CHF, AVR, kidney failure, anemia, type 2 diabetes, arthritis - Social History Smoking Status: Never smoked Drug Use: None - Physical Exam Exam: General Appearance: Alert, pleasant Eyes: Pupils equal and round, no conjunctival pallor or injection ENT, Mouth: Mucous membranes moist Neck: Normal inspection Respiratory: Normal respiratory rate, Rales at bases Cardiovascular: Regular rate and rhythm Gastrointestinal: Abdomen is soft and nontender Neurological: A&O, nonfocal exam Skin: Warm and dry, no rash Extremities: Nontender, no pedal edema Psychiatric: Mood and affect normal Constitutional: Initial Vital Signs Temperature (C) 36.5 C 03/29/18 11:24 Heart Rate 58 L 03/29/18 11:24 Respiratory Rate 18 03/29/18 11:24 Blood Pressure 140/65 H 03/29/18 11:24 O2 Sat (%) 88 L 03/29/18 11:24 O2 Delivery Mode Nasal Cannula O2 (L/minute) 3 Allergies/Adverse Reactions: codeine [Codeine] Allergy (Mild, Verified 03/29/18 11:27) NAUSEA Home Medications: Medication Instructions Recorded Insulin Glargine [Lantus 100 7 units SC DAILY 01/06/13 UNITS/ML] Insulin Lispro [humALOG LISPRO 100 0 - 7 unit SC TIDMEAL 07/12/14 units/ml (*)] Atorvastatin Calcium [Lipitor 80 80 mg PO DAILY 02/09/15 mg] Ferrous Sulfate [Ferrous Sulf 325 325 mg PO DAILY 02/09/15 MG (*)] Sodium Bicarbonate [Na Bicarb] 1,300 mg PO HS 02/09/15 Furosemide [Lasix 40 MG (*)] 80 mg PO DAILY 12/13/15 Acetaminophen [Tylenol 325mg (*)] 325 - 650 mg PO Q4HRS PRN 04/21/17 Calcitriol [Calcitriol (*)] 0.25 mcg PO MO 04/21/17 Cholecalciferol Vit D3 [Vitamin D3 2,000 units PO DAILY 04/21/17 (*)] Warfarin Sodium [Coumadin 3MG (*)] 4.5 mg PO THSA 04/21/17 Allopurinol [Allopurinol 100 MG 100 mg PO DAILY 01/31/18 (*)] Carvedilol [Coreg (*)] 6.25 mg PO BIDMEAL 01/31/18 Cyanocobalamin [Vitamin B12 (*)] 100 mcg PO DAILY 01/31/18 Warfarin Sodium [Coumadin 3MG (*)] 3 mg PO SUMOTUWEFR 01/31/18 amLODIPine BESYLATE [Norvasc 10 mg 10 mg PO DAILY #30 tab 02/01/18 (*)] Medical Decision Making - Diagnostics EKG Interpretation: EKG interpreted by me reveals sinus rhythm, rate 57, left bundle branch block. Interpretation: Abnormal EKG Imaging Results: CXR: slight increase in CHF Imaging: I viewed and interpreted images myself ED Course/Re-evaluation: This patient presents with shortness of breath. Oxygen saturation 95% on her usual 3 L oxygen by nasal cannula. States that she felt better when she was switched to the ED oxygen supply and tubing. She ambulated throughout the emergency department on 3 L of oxygen by nasal cannula and oxygen saturation remained greater than 92%. She denied shortness of breath with ambulation. 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 Will obs and will obtain labs/CXR/EKG. 2pm-The patient and her daughter feel that she is at her baseline status. Asymptomatic throughout her emergency department stay. Laboratory results discussed, including BUN, BNP and hematocrit. These laboratory tests are not far off the patient's baseline and I do not feel that a change in rx is indicated today. The patient has an appointment tomorrow for Procrit. Will f/ u with Dr Gerardo in the office. Differential Diagnosis: Differential diagnosis includes though it is not limited to pneumonia, pneumothorax, pulmonary embolism, aortic dissection, pericarditis, acute coronary syndrome. - Data Points Laboratory Results: Laboratory Results 03/29/18 11:55 03/29/18 11:55 Point of Care Test Results: Chemistry 03/29/18 12:02 POC Troponin I 0.03 ng/mL ng/mL (0.00-0.08) Departure - Departure Disposition: Home, Routine, Self-Care Clinical Impression: Dyspnea Qualifiers: Dyspnea type: shortness of breath Qualified Code(s): R06.02 - Shortness of breath; R06.00 - Dyspnea, unspecified; R06.01 - Orthopnea Condition: Good Instructions: Dyspnea (ED) Additional Instructions: Check your oxygen saturation twice daily. Keep your appointment for Procrit tomorrow. Return for worsening symptoms or any concerns. Referrals: Aarti Gerardo MD [[facility] Primary Care Provider] - As per Instructions
[2018-03-29 12:10] LABS: PLATELET COUNT 168 10^3/uL (150-400)
[2018-03-29 14:15] LABS: INR 2.7 (0.83-1.16); PROTIME(PATIENT) 28.6 SEC (12.0-15.0)
[2018-03-29 14:59] VITALS: BP 144/73
--- NOTE | 2018-03-29 15:28 | CPEKG ---
Test Reason : OPEN Blood Pressure : / mmHG Vent. Rate : 059 BPM Atrial Rate : 057 BPM P-R Int : 198 ms QRS Dur : 130 ms QT Int : 469 ms P-R-T Axes : 022 -35 116 degrees QTc Int : 465 ms Sinus rhythm Left bundle branch block Confirmed by Antonella Armendariz ([id number]) on 03/29/2018 3:28:09 PM Referred By: Confirmed By:Antonella Armendariz
== END 2018-03-29 14:58 | disposition home or self-care (01) ==
DX: R06.00 Dyspnea, unspecified (principal); R06.01 Orthopnea; E11.9 Type 2 diabetes mellitus without complications; I50.9 Heart failure, unspecified; N19 Unspecified kidney failure; I25.10 Atherosclerotic heart disease of native coronary artery without angina pectoris; Z95.1 Presence of aortocoronary bypass graft
CPT/HCPCS: 84484-ER